=== PATIENT | female | born 1930 | race Caucasian/White ===

== ENCOUNTER 2016-12-23 15:43 | Inpatient (IN) | payer OTHER, MEDICARE ==
[~2016-12-23] VITALS: Ht 160 cm; Wt 62.3 kg
[2016-12-23] MEDS ORDERED: LORAZEPAM 0.5 MG TAB SL STA ×2 (16:36→21:07)
[2016-12-23 17:07] LABS: BASO % 0.9 %; BASO ABS # 0.07 K/uL (0-0.2); COMPLETE YES; EOS % 0.5 %; HEMATOCRIT 39.6 % (37-47); IG% 0.1 %; LYMPH % 14.4 %; LYMPH ABS # 1.18 K/uL (1.2-3.4); MEAN CELL VOLUME 87.8 fL (80-100); MEAN CORPUSCULAR HEMOGLOBIN 28.6 pg (25-34); MEAN CORPUSCULAR HGB CONC 32.6 g/dl (32-36); MEAN PLATELET VOLUME 10.9 fL (7.4-10.4); MONO % 10.3 %; NEUT % 73.8 %; PLATELET COUNT 236 K/uL (130-400); RED BLOOD COUNT 4.51 M/uL (4.2-5.4); WHITE BLOOD COUNT 8.19 K/uL (4.8-10.8)
[2016-12-23 17:22] LABS: BUN/CREATININE RATIO 29.1 (10-20); CALCIUM 9.3 mg/dl (8.5-10.1); CREATININE 0.77 mg/dl (0.60-1.20)
[2016-12-23] MEDS ORDERED: ACET-1311 PO (17:26)
[2016-12-23] MEDS ORDERED: TRAZ50TA35 PO (17:26)
[2016-12-23] MEDS ORDERED: ACET-749 PO (17:26)
[2016-12-23] MEDS ORDERED: SULF800T23 PO (17:26)
[2016-12-23] MEDS ORDERED: MIRT15TA2 PO (17:26)
[2016-12-23 17:37] LABS: URINE APPEARANCE CLOUDY (CLEAR); URINE BILIRUBIN NEG (NEG); URINE COLOR YELLOW; URINE NITRITE NEG (NEG); URINE PH 5.5 (4.5-7.5); URINE SPECIFIC GRAVITY 1.022 (1.000-1.030); UROBILINOGEN NEG (NEG)
[2016-12-23 17:38] LABS: MANUAL MICROSCOPIC REQUIRED? NO; REVIEW REQ? NO
[2016-12-23 18:07] LABS: ALKALINE PHOSPHATASE 86 U/L (45-117); ALT/SGPT 29 U/L (12-78); AST/SGOT 39 U/L (15-37); THYROID STIMULATING HORMONE 0.449 uIu/ml (0.300-4.500)
[2016-12-23 18:48] LABS: ACETAMINOPHEN < 2 ug/ml (10-30)
--- NOTE | 2016-12-23 19:11 | EMERGENCY ROOM VISIT NOTE ---
History Report prepared by Dre: Seda Hennessy Under the Supervision of: Dr. Ori Collins M.D. First contact with patient: 16:21 Chief Complaint: URINARY SYMPTOMS Stated Complaint: COMFUSION, UTI Nursing Triage Summary: was recently diagnosed with UTI and placed on antibiotic History of Present Illness The patient is a 86 year old female who presents to the Emergency Room with complaints of constant confusion beginning COMPUTER TESTER. Per nursing staff, the patient has Alzheimer's and was being combative COMPUTER TESTER. They report that she was being aggressive with the staff and talked to a nurse practitioner that recommended a psychiatric evaluation. The patient denies any headache, chest pain, and abdominal pain. She states that she wants to go to Center and notes that she feels like throwing things at people. HPI limited secondary to dementia. Source of History: patient, nursing staff History Limited By: dementia Onset: COMPUTER TESTER Position: other (global) Quality: other (combative) Timing: constant Associated Symptoms: No abdominal pain, No chest pain, No headache Review of Systems See HPI for pertinent positives & negatives. ROS limited secondary to Alzheimer' s. Past Medical & Surgical Medical Problems: (1) Alzheimer disease Family History No pertinent family history stated. Social History Smoking Status: Unknown if Ever Smoked Housing Status: long term Occupation Status: retired Current/Historical Medications Scheduled Acetaminophen (Tylenol), 650 MG PO Q4 Mirtazapine Soltab (Remeron Soltab), 15 MG PO HS Sulfamethoxazole-Trimethoprim (Bactrim Ds 800MG/160MG), 1 TAB PO BID Scheduled PRN Acetaminophen/Codeine (Tylenol W/Codeine #3), 1 TAB PO Q4 PRN for Pain Miscellaneous Medications Trazodone Hcl (Trazodone), 50 MG PO Allergies Coded Allergies: Erythromycin (Unverified Allergy, Severe, unknown, 12/23/16) Penicillins (Unverified Allergy, Severe, unknown, 12/23/16) Pravastatin (Unverified Allergy, Severe, unknown, 12/23/16) Physical Exam Vital Signs Date Time Temp Pulse Resp B/P Pulse Ox O2 Delivery O2 Flow Rate FiO2 12/23/16 17:01 114 22 128/86 96 Room Air 12/23/16 15:50 36.9 120 13 141/81 94 Room Air Physical Exam Constitutional: Vital signs reviewed. Eyes: Pupils are equal round reactive to light. Conjunctiva are noninjected. ENT: Pharynx is clear without erythema or exudate. Mucous membranes are moist. Neck supple without meningeal signs. Respiratory: Clear to auscultation bilaterally. Breath sounds are equal bilaterally. Cardiovascular: Regular rate and rhythm. No rubs or gallops. GI: Soft, nondistended and nontender. Bowel sounds are present. Musculoskeletal: No peripheral edema. No CVA tenderness. Integumentary: No cyanosis. Neurological: The patient is awake and alert. No focal deficits. Psychiatric: Slightly agitated, tangential. Medical Decision & Procedures Laboratory Results 12/23/16 17:00 Red Blood Count 4.51, Mean Corpuscular Volume 87.8, Mean Corpuscular Hemoglobin 28.6, Mean Corpuscular Hemoglobin Concent 32.6, Mean Platelet Volume 10.9, Neutrophils (%) (Auto) 73.8, Lymphocytes (%) (Auto) 14.4, Monocytes (%) (Auto) 10.3, Eosinophils (%) (Auto) 0.5, Basophils (%) (Auto) 0.9, Neutrophils # (Auto ) 6.05, Lymphocytes # (Auto) 1.18, Monocytes # (Auto) 0.84, Eosinophils # (Auto ) 0.04, Basophils # (Auto) 0.07 12/23/16 17:00 Test 12/23/16 17:00 12/23/16 17:25 12/23/16 18:15 White Blood Count 8.19 K/uL (4.8-10.8) Red Blood Count 4.51 M/uL (4.2-5.4) Hemoglobin 12.9 g/dL (12.0-16.0) Hematocrit 39.6 % (37-47) Mean Corpuscular Volume 87.8 fL (80-100) Mean Corpuscular Hemoglobin 28.6 pg (25-34) Mean Corpuscular Hemoglobin Concent 32.6 g/dl (32-36) Platelet Count 236 K/uL (130-400) Mean Platelet Volume 10.9 fL (7.4-10.4) Neutrophils (%) (Auto) 73.8 % Lymphocytes (%) (Auto) 14.4 % Monocytes (%) (Auto) 10.3 % Eosinophils (%) (Auto) 0.5 % Basophils (%) (Auto) 0.9 % Neutrophils # (Auto) 6.05 K/uL (1.4-6.5) Lymphocytes # (Auto) 1.18 K/uL (1.2-3.4) Monocytes # (Auto) 0.84 K/uL (0.11-0.59) Eosinophils # (Auto) 0.04 K/uL (0-0.5) Basophils # (Auto) 0.07 K/uL (0-0.2) RDW Standard Deviation 48.0 fL (36.4-46.3) RDW Coefficient of Variation 15.0 % (11.5-14.5) Immature Granulocyte % (Auto) 0.1 % Immature Granulocyte # (Auto) 0.01 K/uL (0.00-0.02) Anion Gap 10.0 mmol/L (3-11) Est Creatinine Clear Calc Drug Dose 44.2 ml/min Estimated GFR () 81.6 Estimated GFR (Non- 70.4 BUN/Creatinine Ratio 29.1 (10-20) Calcium Level 9.3 mg/dl (8.5-10.1) Total Bilirubin 0.4 mg/dl (0.2-1) Direct Bilirubin 0.1 mg/dl (0-0.2) Aspartate Amino Transf (AST/SGOT) 39 U/L (15-37) Alanine Aminotransferase (ALT/SGPT) 29 U/L (12-78) Alkaline Phosphatase 86 U/L (45-117) Total Protein 7.6 gm/dl (6.4-8.2) Albumin 3.8 gm/dl (3.4-5.0) Thyroid Stimulating Hormone (TSH) 0.449 uIu/ml (0.300-4.500) Free Thyroxine 0.97 ng/dl (0.80-1.60) Urine Color YELLOW Urine Appearance CLOUDY (CLEAR) Urine pH 5.5 (4.5-7.5) Urine Specific [place] 1.022 (1.000-1.030) Urine Protein NEG (NEG) Urine Glucose (UA) NEG (NEG) Urine Ketones 1+ (NEG) Urine Occult Blood 1+ (NEG) Urine Nitrite NEG (NEG) Urine Bilirubin NEG (NEG) Urine Urobilinogen NEG (NEG) Urine Leukocyte Esterase MODERATE (NEG) Urine WBC (Auto) >30 /hpf (0-5) Urine RBC (Auto) 5-10 /hpf (0-4) Urine Hyaline Casts (Auto) 5-10 /lpf (0-5) Urine Epithelial Cells (Auto) 10-20 /lpf (0-5) Urine Bacteria (Auto) NEG (NEG) Salicylates Level < 1.7 mg/dl (2.8-20) Acetaminophen Level < 2 ug/ml (10-30) Ethyl Alcohol mg/dL < 3.0 mg/dl (0-3) Laboratory results as reviewed by me. Medications Administered Medications (Trade) Dose Ordered Sig/Danni Route Start Time Stop Time Status Last Admin Dose Admin Lorazepam (Ativan Tab) 0.5 mg NOW STAT SL 12/23/16 16:36 12/23/16 16:38 DC 12/23/16 16:50 0.5 MG Lorazepam (Ativan Tab) 0.5 mg NOW STAT SL 12/23/16 21:07 12/23/16 21:08 DC 12/23/16 21:07 0.5 MG ED Course 1621: The patient was evaluated in room C3. A complete history and physical exam was performed. 1636: Ativan Tab 0.5mg SL. 2040: The patient's 302 has been filled out and [facility] is trying to place the patient. 2104: Per nursing staff, the patient is getting more agitated and the nurse is concerned that she will become physical with him. 2106: Ativan Tab 0.5mg SL. 0: The patient was signed out to Dr. Andrew. Medical Decision This is an 86-year-old female sent here for agitation. Differential diagnosis includes Alzheimer's dementia, metabolic derangement, delirium, UTI, sepsis. I did perform a limited focused review of portions of the patient's old chart on the electronic medical record. The patient has had no recent pertinent visits to this hospital. I did evaluate the patient as noted above. The patient is here from an [facility] personal senior living. She just established a resident see their yesterday. I did speak to the nurse practitioner there who stated that the patient is belligerent and they are concerned that she may be a danger to others. She also stated that the family noted that her behavior has been somewhat belligerent in the past as well. She is currently under treatment for UTI but her family stated that her behavior started before the UTI. The nurse practitioner requested that the patient be admitted somewhere such as [facility] for medication treatment. The patient is afebrile here. She has no signs of sepsis or serious medical illness. I did order and personally review the patient's urinalysis as described above. She does have signs of infection but is currently under treatment with an antibiotic. A urine culture was sent. She has no fever or CVA tenderness to suggest pyelonephritis. The patient is somewhat agitated here and was given Ativan 0.5 mg orally. I did order and review the patient's blood work as noted in the electronic medical record. I did medically clear the patient. The [facility] by [facility]. They did recommend inpatient treatment. A 302 was filled out which I signed. The patient is awaiting placement. She did become more agitated and was given additional Ativan 0.5 mg. The patient was signed out to Dr. Andrew. Impression Primary Impression: Aggressive behavior of adult Additional Impressions: Alzheimer's dementia UTI (urinary tract infection) Scribe Attestation The scribe's documentation has been prepared under my direct and personally reviewed by me in its entirety. I confirm that the note above accurately reflects all work, treatment, procedures, and medical decision making performed by me. Departure Information Dispostion Still a Patient Patient Instructions [facility] Problem Qualifiers
--- NOTE | 2016-12-23 22:17 | EMERGENCY ROOM VISIT NOTE ---
ED Visit Note First contact with patient: 22:17 The patient was taken in signout from Dr. Collins at the change of shift. The patient had bouts of agitation. Her blood work so far was unremarkable. I did obtain the culture results from her outpatient urinalysis. She had an Escherichia coli infection. It was sensitive to Bactrim. The patient was being evaluated by [facility] for inpatient care. Her urinalysis was concerning for persistent infection. The patient was evaluated and was resting comfortably but was tachycardic. She had more intermittent issues with agitation. The patient underwent CT imaging of the head which was negative. IV Cipro was ordered as well as an additional dose of Ativan. The patient calmed down before requiring the Ativan. I did discuss the case with internal medicine due to her worsening mental status from the outpatient side of things and this UTI that seems to be persisting despite the culture that was revealing the Escherichia coli to be sensitive to Bactrim. Given the situation the patient will best served by consultation with internal medicine. The patient was evaluated by Dr. Bishop for further management.
[2016-12-23] MEDS ORDERED: MIRTAZAPINE TAB 15 MG TAB PO ONE (23:00)
[2016-12-23] MEDS ORDERED: TRAZODONE HCL 50 MG TAB PO ONE (23:00)
[2016-12-23] MEDS ORDERED: SODIUM CHLORIDE 0.9% 1000ML 1,000 ML IV STA (23:28)
[2016-12-23] MEDS ORDERED: SODIUM CHLORIDE 0.9% 500ML 500 ML IV STA (23:28)
[2016-12-23] MEDS ORDERED: LORAZEPAM 2 MG/ML 1 ML VIAL IV STA (23:42)
[2016-12-24] MEDS ORDERED: CIPROFLOXACIN 400MG / 200ML D5W IV STA
[2016-12-24 02:04] VITALS: O2SAT 91
[2016-12-24 02:54] VITALS: BP 131/87; PULSE 80; TEMP 36.8; Ht 160 cm; Wt 62.3 kg
[2016-12-24] MEDS ORDERED: SODIUM CHLORIDE 0.9% 1000ML 1,000 ML IV SCH (03:15)
--- NOTE | 2016-12-24 03:48 | History and Physical ---
History & Physical Date & Time of Service: Dec 24, 2016 at 01:30 . Chief Complaint: altered mental status . Primary Care Physician: Odilia Pardo, C.R.N.P. . History of Present Illness Source: patient, family, clinic records, hospital records 86 YO female followed by SHIPPING AND RECEIVING WEIGHER Odilia Pardo at [facility]. The following history is gathered from [id number] by phone and clinic records. She is , from [place]. Son and [id number] live in [place]. She apparently first developed difficulties with memory about 4-5 years ago. Donepezil tried in 2013, but apparently did not offer much benefit. Still driving last summer. Worsening dementia lead to admission to [facility] in [place] around July. Noted to have hallucinations, delusional behavior, and wandering. Underwent repair of uterine prolapse in October. Started on trazodone in October which she continues to take. Seen at [facility] in [place] 11/28/16 for strep pharyngitis which was treated with cefdinir. Seen by RAMESH Agustin, [facility] in [facility]rology [facility] on 12/15/16. It was felt that she had advanced Alzheimer's dementia and that meds such as cholinesterase inhibitors and memantine would probably have more adverse effects than benefit. Deemed unable to stay in personal care facility and transfer to a dementia facility was recommended. Diagnosed with UTI 12/16/16. Urine C&S grew E coli, treated with TMP/sulfa. Admitted to [facility] in [place] on 12/22/16. Family reports that she seemed to be at her baseline, but was upset when they left. Over the weekend she was very agitated and at times aggressive with staff. Referred to ED around 16:00 yesterday (12/23) for psychiatric evaluation. Medical evaluation negative except for possible persistent UTI and dehydration. She was combative in ED and received 3 doses of lorazepam. Evaluated by [facility]. 302 completed. Patient referred to Hospital Medicine for admission. At the time of my assessment, patient was very somnolent and preferred to be left alone. She was unable to provide any additional history. . Past Medical/Surgical History Chronic Medical Problems: (1) Alzheimer's dementia Status: Chronic (2) Dyslipidemia Status: Chronic (3) Hypertension Status: Chronic (4) Osteoporosis Status: Chronic (5) Uterine prolapse Permanent Comment: s/p repair Status: Chronic . Family History FATHER Stroke BROTHER Esophageal cancer GRANDMOTHER Breast cancer Social History Smoking Status: Never Smoker Alcohol Use: none Marital Status: Housing status: assisted living Occupational Status: retired Immunizations History of Influenza Vaccine: Yes History of Pneumococcal: Yes Allergies Coded Allergies: Erythromycin (Unverified Allergy, Severe, unknown, 12/23/16) Pravastatin (Unverified Allergy, Severe, unknown, 12/23/16) Penicillins (Unverified Allergy, Intermediate, HIVES, 12/24/16) cephalosporins OK received cefdinir Nov 2016 without problems Home Medications Scheduled Acetaminophen (Tylenol), 650 MG PO Q4 Mirtazapine Soltab (Remeron Soltab), 15 MG PO HS Sulfamethoxazole-Trimethoprim (Bactrim Ds 800MG/160MG), 1 TAB PO BID Scheduled PRN Acetaminophen/Codeine (Tylenol W/Codeine #3), 1 TAB PO Q4 PRN for Pain Miscellaneous Medications Trazodone Hcl (Trazodone), 50 MG PO Review of Systems Unable to obtain due to patient's condition. . Physical Exam Vital Signs Date Time Temp Pulse Resp B/P Pulse Ox O2 Delivery O2 Flow Rate FiO2 12/24/16 02:54 36.8 80 18 131/87 Room Air 12/24/16 02:04 80 18 91 12/24/16 00:29 110 12/24/16 00:01 111 18 120/86 94 Room Air 12/23/16 17:01 114 22 128/86 96 Room Air 12/23/16 15:50 36.9 120 13 141/81 94 Room Air General Appearance: WD/WN, no apparent distress Head: normocephalic, atraumatic Eyes: + pertinent finding (patient would not cooperate with exam) ENT: normal ENT inspection, hearing grossly normal, + pertinent finding ( patient would not cooperate with complete exam) Neck: supple, no adenopathy, thyroid normal, no JVD, trachea midline Respiratory/Chest: lungs clear, no respiratory distress, no accessory muscle use Cardiovascular: regular rate, rhythm, no edema, no gallop, no JVD, no murmur Abdomen/GI: normal bowel sounds, non tender, soft, no organomegaly, no pulsatile mass Back: no CVA tenderness Extremities/Musculoskelatal: normal inspection, no calf tenderness, no pedal edema Neurologic/Psych: + pertinent finding (confused, somnolent; unable to assess CN ; moves all 4 extr; plantar reflexes downgoing) Skin: normal color, warm/dry Lymphatic: no adenopathy Diagnostics Laboratory Results Results Past 24 Hours Test 12/23/16 17:00 12/23/16 17:25 12/23/16 18:15 12/23/16 23:30 Range/Units White Blood Count 8.19 4.8-10.8 K/uL Red Blood Count 4.51 4.2-5.4 M/uL Hemoglobin 12.9 12.0-16.0 g/dL Hematocrit 39.6 37-47 % Mean Corpuscular Volume 87.8 80-100 fL Mean Corpuscular Hemoglobin 28.6 25-34 pg Mean Corpuscular Hemoglobin Concent 32.6 32-36 g/dl Platelet Count 236 130-400 K/uL Mean Platelet Volume 10.9 7.4-10.4 fL Neutrophils (%) (Auto) 73.8 % Lymphocytes (%) (Auto) 14.4 % Monocytes (%) (Auto) 10.3 % Eosinophils (%) (Auto) 0.5 % Basophils (%) (Auto) 0.9 % Neutrophils # (Auto) 6.05 1.4-6.5 K/uL Lymphocytes # (Auto) 1.18 1.2-3.4 K/uL Monocytes # (Auto) 0.84 0.11-0.59 K/uL Eosinophils # (Auto) 0.04 0-0.5 K/uL Basophils # (Auto) 0.07 0-0.2 K/uL RDW Standard Deviation 48.0 36.4-46.3 fL RDW Coefficient of Variation 15.0 11.5-14.5 % Immature Granulocyte % (Auto) 0.1 % Immature Granulocyte # (Auto) 0.01 0.00-0.02 K/uL Sodium Level 142 136-145 mmol/L Potassium Level 4.0 3.5-5.1 mmol/L Chloride Level 109 98-107 mmol/L Carbon Dioxide Level 23 21-32 mmol/L Anion Gap 10.0 3-11 mmol/L Blood Urea Nitrogen 22 7-18 mg/dl Creatinine 0.77 0.60-1.20 mg/dl Est Creatinine Clear Calc Drug Dose 44.2 ml/min Estimated GFR () 81.6 Estimated GFR (Non- 70.4 BUN/Creatinine Ratio 29.1 10-20 Random Glucose 97 70-99 mg/dl Calcium Level 9.3 8.5-10.1 mg/dl Total Bilirubin 0.4 0.2-1 mg/dl Direct Bilirubin 0.1 0-0.2 mg/dl Aspartate Amino Transf (AST/SGOT) 39 15-37 U/L Alanine Aminotransferase (ALT/SGPT) 29 12-78 U/L Alkaline Phosphatase 86 45-117 U/L Troponin I < 0.015 0-0.045 ng/ml Total Protein 7.6 6.4-8.2 gm/dl Albumin 3.8 3.4-5.0 gm/dl Thyroid Stimulating Hormone (TSH) 0.449 0.300-4.500 uIu/ml Free Thyroxine 0.97 0.80-1.60 ng/dl Urine Color YELLOW Urine Appearance CLOUDY CLEAR Urine pH 5.5 4.5-7.5 Urine Specific [place] 1.022 1.000-1.030 Urine Protein NEG NEG Urine Glucose (UA) NEG NEG Urine Ketones 1+ NEG Urine Occult Blood 1+ NEG Urine Nitrite NEG NEG Urine Bilirubin NEG NEG Urine Urobilinogen NEG NEG Urine Leukocyte Esterase MODERATE NEG Urine WBC (Auto) >30 0-5 /hpf Urine RBC (Auto) 5-10 0-4 /hpf Urine Hyaline Casts (Auto) 5-10 0-5 /lpf Urine Epithelial Cells (Auto) 10-20 0-5 /lpf Urine Bacteria (Auto) NEG NEG Salicylates Level < 1.7 2.8-20 mg/dl Acetaminophen Level < 2 10-30 ug/ml Ethyl Alcohol mg/dL < 3.0 0-3 mg/dl Test 12/24/16 00:02 Range/Units Bedside Troponin I 0.010 0-0.045 ng/ml Microbiology Results 12/23/16 Urine Culture, Received Pending Diagnostic Radiology CT HEAD (prelim report by [facility]): chronic white matter small vessel disease no acute event CHEST X-RAY (preliminary report by undersigned): no infiltrates ?? mild vascular prominence . EKG EKG performed at 00:[address] at 101 / minute, [id number]'s, QTc 427 msec. . Impression Assessment and Plan DELIRIUM / DEMENTIA Progressive dementia for about 5 years, probably Alzheimer's disease (although may also have a component of vascular dementia). Unable to stay in her home, so admitted to personal care in Jul. Unable to stay at personal care facility due to wandering and combative behavior. Transferred to dementia care unit 2 days ago. Exhibiting combative behavior there and referred to [facility] for further evaluation and management. Superimposed delirium could be do to combination of factors- recent change of living conditions, dehydration, possible UTI, meds. Unable to return to [facility]. Spoke with [id number]. Possible admission to geropsych unit had been mentioned as a possibility, but family is hoping to avoid transfer to yet another facility. Will treat medical concerns as outlined below. Patient was recently seen in consultation by [facility] Neurology. Routine labs (TSH, B12, etc) OK. Cholinesterase inhibitors or memantine not recommended because of anticipated side effects without likely benefit. Consult Neuro to follow her during her hospital stay. Behavioral issues (delusional thoughts, apparent hallucinations, combative behavior) have been a major concern, not responding to nonpharmacologic interventions. Benzodiazepines, narcotics, anti-cholinergic meds should be avoided. Atypical anti-psychotics discussed with [id number], including side effects , black box warning, and absence of FDA approval for patients with dementia. Given the circumstances, would seem reasonable to try low dose quetiapine to try to improve patient's quality of life (and accept possibility of adverse side effects). QTc OK on EKG. Will start quetiapine 25 mg HS + PRN for severe delirium. (PRN dose will need to be stopped before transfer to another facility). Won't hurt to start aspirin for possible vascular dementia. Watch for Parkinson-like symptoms on antipsychotics (which could be indicative of Lewy body dementia). Will need outpatient follow-up with Neurology and / or Geropsychiatry. DEPRESSION Has been on mirtazapine at least since Jul and trazodone since Oct; both can cause confusion DC mirtazapine + trazodone. Try low-dose sertraline (25 mg daily). DEHYDRATION BUN slightly elevated. IV fluid x 1 liter, then encourage PO fluids. POSSIBLE UTI Recently diagnosed E coli UTI, resistant to ampicillin, sensitive to ceftriaxone , cefepime, quinolones, gent, TMP/sulfa. Treated with TMP / sulfa. Currently afebrile with normal WBC count. UA shows moderate leukocyte esterase, WBC's, RBC's, hyaline casts, epithelial cells. May or may not have persistent UTI. Best to avoid quinolones due to anticholinergic properties. Rx with IV ceftriaxone pending repeat culture results. VTE PROPHYLAXIS Moderate risk for VTE. SQ enoxaparin. Ambulate. VACCINATION STATUS Received pneumococcal vaccine last in 2014. Has received influenza vaccine on regular basis; assume that it was given at [facility] in [place] this season, but will need to verify. RESUSCITATION STATUS Not discussed. Will need to be clarified with family. DISPOSITION Admit to Med-Surg Unit. To be determined. Family hopes that she will be able to return to [facility]. CONTACT INFO: iN ([id number]) [phone] . Advanced Directives Existing Advance Directive: Yes Existing Living Will: Yes Existing Power of Security Systems Sales Representative: Yes VTE Prophylaxis VTE Risk Assessment Done? Y/N: Yes Risk Level: Moderate Given or contraindicated: Enoxaparin (Lovenox)SQ
[2016-12-24] MEDS ORDERED: ACETAMINOPHEN 500 MG TAB PO PRN (04:30)
--- NOTE | 2016-12-24 06:13 | DIAGNOSTIC IMAGING REPORT ---
HEAD CT NONCONTRAST CT DOSE: 537.48 mGy.cm HISTORY: Altered mental status. TECHNIQUE: Multiaxial CT images of the head were performed without the use of intravenous contrast. Automated exposure control was utilized for this study. Comparison: None. Findings: The paranasal sinuses and mastoid air cells are clear. The calvarium and skull base are intact. There is no mass, hematoma, midline shift, acute infarct. White matter hypodensity is nonspecific but suggestive of microvascular ischemic change. The ventricles and sulci demonstrate mild age-related involutional changes. Impression: No acute intracranial abnormality. Atrophy and microvascular ischemic changes. Electronically signed by: Dany Kent M.D. 12/24/2016 6:11 AM Dictated Date/Time: 12/24/2016 6:09 AM
[2016-12-24 07:04] VITALS: BP 123/81; PULSE 103; TEMP 36.6; O2SAT 98
[2016-12-24 07:39] LABS: INR 1.1 (0.9-1.1); PROTHROMBIN TIME (PATIENT) 11.3 SECONDS (9.0-12.0)
[2016-12-24 07:46] LABS: BUN/CREATININE RATIO 28.1 (10-20); CALCIUM 8.7 mg/dl (8.5-10.1); CREATININE 0.68 mg/dl (0.60-1.20)
[2016-12-24] MEDS ORDERED: PNEUMOCOCCAL POLYSACCHARIDES 25 MCG/0.5 ML VIAL/SYR IM. ONE (08:00)
[2016-12-24] MEDS ORDERED: INFLUENZA VIRUS QUAD VACCINE 0.5 ML SYR IM. ONE (08:00)
[2016-12-24] MEDS ORDERED: INFLUENZA ADMINISTRATION CHARGE ONE (08:00)
[2016-12-24] MEDS ORDERED: PNEUMOCOCCAL ADMINISTRATION CHARGE ONE (08:00)
--- NOTE | 2016-12-24 08:06 | DIAGNOSTIC IMAGING REPORT ---
CHEST ONE VIEW PORTABLE HISTORY: delirium COMPARISON: None. FINDINGS: Mild diffuse interstitial thickening which is likely chronic. No focal lung consolidations. The heart is top normal in size. No pleural effusions. No pneumothorax. No evidence for pulmonary edema. IMPRESSION: No acute process. Electronically signed by: Dany Kent M.D. 12/24/2016 8:04 AM Dictated Date/Time: 12/24/2016 8:03 AM
[2016-12-24] MEDS: ASPIRIN 81 MG ECTAB PO SCH (08:34)
[2016-12-24] MEDS: SERTRALINE HCL 50 MG TAB PO SCH (08:34)
[2016-12-24] MEDS: ENOXAPARIN 30 MG/0.3 ML SYR SQ SCH (08:35)
[2016-12-24] MEDS ORDERED: HEPARIN SOD 5000 UNIT/0.5 ML CARP SQ SCH (09:00)
[2016-12-24] MEDS ORDERED: CEFTRIAXONE SOD INJ 1 GM in DEXTROSE 5% ADD-VANTAGE 50ML 50 ML IV SCH (09:00)
--- NOTE | 2016-12-24 13:46 | PROGRESS NOTE ---
DATE: 12/24/2016 REQUESTING PHYSICIAN: . HISTORY OF PRESENT ILLNESS: Bren is 86 years old, is followed by Dr. Odilia Pardo at [facility] and was admitted to the hospital for increasing dementia and agitation in the setting of a probable underlying urinary tract infection. She had been seen by neurology, actually on 12/15/2016 by Lelia CHANDLER, was felt to have advanced Alzheimer's disease and to be beyond the point that cholinesterase inhibitors and Namenda would be beneficial and would probably be more harmful than anything else. She was felt furthermor to be unable to stay at her personal care facility and transfer to a dementia facility was recommended. She was diagnosed with a urinary tract infection on 12/16/2016. Urine culture grew out E. coli and she was placed on trimethoprim sulfa. She was placed at [facility] on 12/22/2016 and seemed to be at her baseline, but then over the weekend she became agitated, aggressive with the staff and was referred to the ER and subsequently admitted to the hospital. She is on one on one care ever since. It appears that her dementia has been coming on for quite a number of years, perhaps 5-10. PAST MEDICAL HISTORY: In addition to the dementia, likely as an Alzheimer's type, or mixed Alzheimer's vascular include dyslipidemia, hypertension, osteoporosis, uterine prolapse. FAMILY HISTORY: Positive for esophageal cancer, breast cancer and stroke. SOCIAL HISTORY: Reveals her to be a never smoker. She is . She is currently in the assisted living and is a former resident of [place], [place]. ALLERGIES: SHE HAS ALLERGIES TO ERYTHROMYCIN, PRAVASTATIN, PENICILLINS. MEDICATIONS: Include acetaminophen, Remeron, trimethoprim sulfa. As needed medicines include acetaminophen, and codeine. She also takes trazodone 50 mg daily. PHYSICAL EXAMINATION: VITAL SIGNS: On admission revealed blood pressure 131/87, pulse was 80, respirations were 18. She was afebrile. GENERAL: She was a thin woman who actually appeared a little younger than her stated age, but was poorly cooperative with examination. HEENT: Gross examination of head, eyes, ears, nose and throat was unremarkable. NECK: Supple. LUNGS: Clear. HEART: Had a regular rhythm. ABDOMEN: Soft, nontender. EXTREMITIES: Free of edema. Today in the light of the mid morning she is pleasant. She with a one on one caregiver. She is leafing through various magazines, can identify certain pictures, but is totally disoriented to place, time, year, etc. She gazes about to room. She does not appear to be agitated and on gross cranial nerve testing, I see no deficits. She seems to respond to visual threat in all dhaliwal. The eye movements are full. Speech is clear. She has normal facial motility and strength. Normal gross facial sensation. I really cannot get her to cooperate with reflex testing to any degree. They seem to be all present and equal. Toes are downgoing. Strength testing again is difficult to assess, but she certainly has the power to do most of her task, and can get up and walk. Sensory examination cannot be performed in any usable manner. It is clear this woman has advanced dementia. She has had some behavioral issues possibly as part of delirium related to her urinary tract infection, but she has also had an environmental change and I think some of this may be not inappropriate. I agree with Dr. Bishop idea to put her on a little Seroquel. Frankly, I would get geriatric psychiatry involved fairly quickly as if her behavior makes her a noncandidate for the [facility] facility she may have to be moved to a more closely supervised environment. An inpatient psychiatry evaluation now may make outpatient evaluation more readily established after discharge. I agree that at this point Namenda and Aricept are not going to offer any benefits. I reviewed imaging studies and there is a degree of atrophy not inappropriate for age and also fair amount of leukoencephalopathy. So the onset of this may be a mixed dementia in addition to advanced Alzheimer's certainly is a possibility, but is an academic question at this point. Will check with her periodically over the next few days. LYNNE
[2016-12-24] MEDS: QUETIAPINE FUMARATE 25 MG TAB PO PRN (14:08)
[2016-12-24 14:53] VITALS: BP 115/78; PULSE 125; TEMP 36.3; O2SAT 97
--- NOTE | 2016-12-24 17:26 | Progress Note ---
Medicine Progress Note Date & Time of Visit: Dec 24, 2016 at 17:19. Subjective Patient seen and examined. Patient trying to roam hallways earlier. No agitation; no aggression. Objective Last 8 Hrs Date Time Temp Pulse Resp B/P Pulse Ox O2 Delivery O2 Flow Rate FiO2 12/24/16 14:53 36.3 125 18 115/78 97 Room Air Physical Exam: General-awake; alert; NAD Eyes-EOMI; no scleral icterus Neck-no stridor; trachea midline Lungs-CTA bilaterally; no wheezes/crackles Heart-tachycardic but regular Abdomen-soft; NTND; nBS Extremities-no c/c/e; no deformity Neuro-unable to fully asses given underlying severe dementia Laboratory Results: Last 24 Hours Test 12/23/16 17:25 12/23/16 18:15 12/23/16 23:30 12/24/16 00:02 Urine Color YELLOW Urine Appearance CLOUDY Urine pH 5.5 Urine Specific [place] 1.022 Urine Protein NEG Urine Glucose (UA) NEG Urine Ketones 1+ Urine Occult Blood 1+ Urine Nitrite NEG Urine Bilirubin NEG Urine Urobilinogen NEG Urine Leukocyte Esterase MODERATE Urine WBC (Auto) >30 /hpf Urine RBC (Auto) 5-10 /hpf Urine Hyaline Casts (Auto) 5-10 /lpf Urine Epithelial Cells (Auto) 10-20 /lpf Urine Bacteria (Auto) NEG Salicylates Level < 1.7 mg/dl Acetaminophen Level < 2 ug/ml Ethyl Alcohol mg/dL < 3.0 mg/dl Bedside Troponin I 0.010 ng/ml Test 12/24/16 06:51 12/24/16 06:57 Sodium Level 141 mmol/L Potassium Level 4.0 mmol/L Chloride Level 106 mmol/L Carbon Dioxide Level 23 mmol/L Anion Gap 12.0 mmol/L Blood Urea Nitrogen 19 mg/dl Creatinine 0.68 mg/dl Est Creatinine Clear Calc Drug Dose 50.0 ml/min Estimated GFR () 92.4 Estimated GFR (Non- 79.8 BUN/Creatinine Ratio 28.1 Random Glucose 84 mg/dl Calcium Level 8.7 mg/dl Prothrombin Time 11.3 SECONDS Prothromb Time International Ratio 1.1 Activated Partial Thromboplast Time 27.0 SECONDS Partial Thromboplastin Ratio 1.0 Date/Time Source Procedure Growth Status 12/24/16 05:30 Nasal MRSA DNA Surveillance Screen - Final Specimen Negative for MRSA by DNA Probe Complete 12/23/16 17:25 Urine , Clean Catch Urine Culture - Preliminary NO GROWTH - LESS THAN 1,000 COLONIES/... Resulted Assessment & Plan DELIRIUM / DEMENTIA Progressive dementia for about 5 years, probably Alzheimer's disease (although may also have a component of vascular dementia). Unable to stay in her home, so admitted to personal care in Jul. Unable to stay at personal care facility due to wandering and combative behavior. Transferred to dementia care unit 2 days ago. Exhibiting combative behavior there and referred to [facility] for further evaluation and management. Superimposed delirium could be do to combination of factors- recent change of living conditions, dehydration, possible UTI, meds. Patient was recently seen in consultation by [facility]. Routine labs (TSH, B12, etc) OK. Cholinesterase inhibitors or memantine not recommended because of anticipated side effects without likely benefit. Consulted Neuro. Behavioral issues (delusional thoughts, apparent hallucinations, combative behavior) have been a major concern, not responding to nonpharmacologic interventions. Benzodiazepines, narcotics, anti-cholinergic meds should be avoided. Started quetiapine 25 mg HS + PRN for severe delirium. (PRN dose will need to be stopped before transfer to another facility). Aspirin started for possible component of vascular dementia. Will need outpatient follow-up with Neurology and / or Geropsychiatry. DEPRESSION Has been on mirtazapine at least since Jul and trazodone since Oct; both can cause confusion Discontinued mirtazapine + trazodone. Started low-dose sertraline (25 mg daily). VTE PROPHYLAXIS Moderate risk for VTE. SQ enoxaparin. Ambulate. CONTACT INFO: Ni ([id number]) [phone] No clinical evidence of current UTI. Dirty urinalysis with many epithelial cells. Urine culture negative. Patient had received appropriate treatment for UTI as outpatient. Consultants: Neurology Current Inpatient Medications: Current Inpatient Medications Medications (Trade) Dose Ordered Sig/Danni Route Start Time Stop Time Status Last Admin Dose Admin Haloperidol Lactate 0.5 mg 0.5 mg Q30M PRN IM 12/24/16 01:45 Ceftriaxone Sodium/Dextrose (Rocephin Inj/ Dextrose Add-[place] 50ML) 50 ml @ 100 mls/hr DAILY IV 12/24/16 09:00 01/03/17 08:59 12/24/16 08:45 100 MLS/HR Quetiapine Fumarate (seroQUEL TAB) 25 mg HS PO 12/24/16 21:00 01/23/17 20:59 Quetiapine Fumarate (seroQUEL TAB) 25 mg Q6H PRN PO 12/24/16 03:15 01/23/17 03:14 12/24/16 14:08 25 MG Sertraline HCl (Zoloft Tab) 25 mg QAM PO 12/24/16 09:00 01/23/17 08:59 12/24/16 08:34 25 MG Aspirin (Ecotrin Tab) 81 mg QAM PO 12/24/16 09:00 01/23/17 08:59 12/24/16 08:34 81 MG Enoxaparin Sodium (Lovenox Inj) 30 mg QAM SQ 12/24/16 09:30 01/23/17 09:29 12/24/16 08:35 30 MG Acetaminophen (Tylenol Tab) 500 mg Q6H PRN PO 12/24/16 04:30 01/23/17 04:29
[2016-12-24] MEDS: QUETIAPINE FUMARATE 25 MG TAB PO SCH (20:30)
[2016-12-25] MEDS: HALOPERIDOL LACTATE 5 MG/ML 1 ML VIAL IM PRN ×2 (07:15→08:09)
[2016-12-25] MEDS ORDERED: HALOPERIDOL LACTATE 5 MG/ML 1 ML VIAL IM PRN ×2 (08:15→19:45)
[2016-12-25] MEDS: ENOXAPARIN 30 MG/0.3 ML SYR SQ SCH ×2 (09:00→09:20)
[2016-12-25] MEDS: ASPIRIN 81 MG ECTAB PO SCH ×3 (09:00→10:15)
[2016-12-25] MEDS: SERTRALINE HCL 50 MG TAB PO SCH ×3 (09:00→10:15)
[2016-12-25] MEDS: QUETIAPINE FUMARATE 25 MG TAB PO PRN ×2 (09:19→10:15)
--- NOTE | 2016-12-25 09:36 | Psychiatric Consultation ---
Consultation Identifying Data Ms. Stewart is an 86 yo female, recent resident to memory care unit of a skilled nursing, brought to ED on 12/24 for combative behavior at facility, admit 12/25 for UTI/dehydration. Chief Complaint patient unable to provide, combative this am, required 0.5 mg Haldol X2. History of Present Illness history on chart reviewed--no psych history until dx of memory issues/dementia 4 -5 years ago, initially tried on donepezil. Significant decline from last summer when reportedly still driving. Admitted to a personal longterm this fall and progressed to some hallucinations, delusional behavior and wandering there. Recommended to higher level of care by neurology [facility] consultant about 10 days ago. Only at [facility] since Dec 22 but agitated and aggressive with staff so referred to ED for ALONSO sosa. She did receive prn Ativan in the ED and 302 process was started prior to admission to medicine. Her Remeron was discontinued by medicine team in favor of Zoloft for agitation and given level of combativeness/restlessness she was started on Seroquel 25 mg hs with additional prn. The patient is currently sleeping soundly after period of confusion escalating to attempted wandering and 4 staff involved in maintaining safety. Received 0.5 mg Haldol with a repeat and 5 mg prn is currently ordered. Past Psychiatric History no formal, liaison will confirm with family member on trazodone since Oct. Past Medical/Surgical History Problem List: (1) Alzheimer's dementia (2) Altered mental status (3) UTI (urinary tract infection) (4) Dyslipidemia (5) Hypertension (6) Osteoporosis (7) Uterine prolapse (8) Dehydration Allergies Allergies: Coded Allergies: Erythromycin (Unverified Allergy, Severe, unknown, 12/23/16) Pravastatin (Unverified Allergy, Severe, unknown, 12/23/16) Penicillins (Unverified Allergy, Intermediate, HIVES, 12/24/16) cephalosporins OK received cefdinir Nov 2016 without problems Home Medications Scheduled Acetaminophen (Tylenol), 650 MG PO Q4 Mirtazapine Soltab (Remeron Soltab), 15 MG PO HS Sulfamethoxazole-Trimethoprim (Bactrim Ds 800MG/160MG), 1 TAB PO BID Scheduled PRN Acetaminophen/Codeine (Tylenol W/Codeine #3), 1 TAB PO Q4 PRN for Pain Miscellaneous Medications Trazodone Hcl (Trazodone), 50 MG PO Family History Breast cancer GRANDMOTHER Esophageal cancer BROTHER Stroke FATHER patient is unable to provide family psych history. Alcohol Use Alcohol Use In Past 12 Months: No Substance History no Personal History Development: from [employer] Work History: retired Children: 2--son in [place], daughter in [place] Review of Systems patient unable to complete due to sedation/delirium Examination Vital Signs Vital Signs Past 12 Hours Date Time Temp Pulse Resp B/P Pulse Ox O2 Delivery O2 Flow Rate FiO2 12/24/16 23:31 Room Air Mental Examination During interview pt is: uncooperative Appearance: disheveled Eye contact is: poor full exam could not be completed as s/p prn Haldol Impression / Recommendations Impression 86 yo female with history of dementia with behavioral disturbance and reportedly psychotic symptoms admit for acting out behaviors at a new facility in the context of superimposed delirium from UTI/dehydration. Just started SSRI and low dose Seroquel to address behavioral disturbance related to dementia. Recommendations (1) Altered mental status typical delirium recs as far as prns, given sedation following 1 mg total of Haldol, current dose of haldol 5 with repeat may be a bit high for this antipsychotic naive patient, 2 or 2.5 mg may be sufficient. If higher dose or repetitive doses are needed would recommend coadministration with Cogentin 0.5 or 1 mg to limit EPS as can impact gait and swallow, note that anticholinergics can also contribute to delirium. QTc is normal. (2) Alzheimer's dementia would continue current doses of Zoloft and Seroquel, if sedated on 25 mg as prn would decrease prn to 12.5 mg. use of Seroquel in this patient outweighs risks in elderly given level of combativeness with routine care as patient was a risk to self and others will need to determine appropriateness of a jeane psych admit when full MSE can be performed as unable to assess ballesteros/delusions liaison to confirm status of 302.
[2016-12-25 13:56] VITALS: BP 133/89; PULSE 114; TEMP 36.7; O2SAT 96
--- NOTE | 2016-12-25 14:51 | Neurology Progress Notes ---
Neurology Progress Note Date of Service Dec 25, 2016. Pino Correia is an 86 year old with advance dementia that was seen in our office by Fletcher Mazariegos NP and was not thought to benefit from adding dementia medications at this stage in the disease. She was transitioned to [facility] on 12/22/2016 after it was determined she would not safe at her personal shelter. She was treated for a UTI and then had an episode of aggression and was brought to the ED further evaluation. She is sitting on the side of the bed currently and appears to be calm. When asked if she ate her lunch she states she has but the aid states she didn't eat any lunch. denies CP , SOB, abdominal pain, N, V. Objective Date Time Temp Pulse Resp B/P Pulse Ox O2 Delivery O2 Flow Rate FiO2 12/25/16 13:56 36.7 114 20 133/89 96 12/25/16 10:31 Room Air 12/24/16 23:31 Room Air 12/24/16 20:45 Room Air 12/24/16 14:53 36.3 125 18 115/78 97 Room Air no new labs Imaging: no new images Exam: Physical Exam: Constitutional: appearance thin pale Ears, Nose, Mouth and Throat: mucous membranes moist, no injection and skin normal, eyes normal Cardiovascular: normal S-1 and S-2 and regular rate and rhythm Respiratory: clear to auscultation (CTA) and no rales, rhonchi or wheeze Musculoskeletal: no peripheral edema and good distal pulses Skin: no stigmata of neurocutaneous disease noted and normal and intact Eyes: extraocular muscles intact (EOMI) and pupils equal, round and reactive to light (PERRL) NEUROLOGIC EXAMINATION: Mental status: Alert and interactive she thinks it is 1945, wont say her age, states she [place] the [place] and does not know where she is. 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 Current Inpatient Medications Medications (Trade) Dose Ordered Sig/Danni Route Start Time Stop Time Status Last Admin Dose Admin Quetiapine Fumarate (seroQUEL TAB) 25 mg HS PO 12/24/16 21:00 01/23/17 20:59 12/24/16 20:30 25 MG Quetiapine Fumarate (seroQUEL TAB) 25 mg Q6H PRN PO 12/24/16 03:15 01/23/17 03:14 12/25/16 10:15 25 MG Sertraline HCl (Zoloft Tab) 25 mg QAM PO 12/24/16 09:00 01/23/17 08:59 12/25/16 10:15 25 MG Aspirin (Ecotrin Tab) 81 mg QAM PO 12/24/16 09:00 01/23/17 08:59 12/25/16 10:15 81 MG Enoxaparin Sodium (Lovenox Inj) 30 mg QAM SQ 12/24/16 09:30 01/23/17 09:29 12/24/16 08:35 30 MG Acetaminophen (Tylenol Tab) 500 mg Q6H PRN PO 12/24/16 04:30 01/23/17 04:29 Haloperidol Lactate (Haldol Inj) 5 mg Q30M PRN IM 12/25/16 08:15 01/24/17 08:14 12/25/16 10:57 5 MG Impression 86 year old female with severe dementia Plan 1. would use seraquel as needed as prescribed by psychiatry watch for sedation 2. Aricept and Namenda would have no roll in treatment at this stage of dementia 3. zoloft started for depression 4. haldol would watch dosing due to age and renal issues 5. nutrition appears to be an issue 6. family input would be helpful for direction of management I have seen and discussed above patient with Dr Kim Clayton, neurology Pt discussed and seen with MYA López. Pt is awake, distractible, mildly defensive. Pt recent change in MS likely related to new surroundings and UTI superimposed on what is at least a moderate dementia.I agree with the use of seroquel for management of behavioral issues. Hopefully it will allow her to be able to stay at her current level of care. KOTA Clayton MD
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
[2016-12-25] MEDS: QUETIAPINE FUMARATE 25 MG TAB PO SCH (21:00)
[2016-12-25 23:43] VITALS: BP 133/85; PULSE 108; TEMP 36.9; O2SAT 95
[2016-12-26 07:06] VITALS: BP 131/84; PULSE 113; TEMP 36.7; O2SAT 94
[2016-12-26 07:34] VITALS: BP 120/61; PULSE 102; TEMP 36.7; O2SAT 90
[2016-12-26] MEDS: SERTRALINE HCL 50 MG TAB PO SCH (07:44)
[2016-12-26] MEDS: ASPIRIN 81 MG ECTAB PO SCH (07:45)
[2016-12-26] MEDS: ENOXAPARIN 30 MG/0.3 ML SYR SQ SCH (07:45)
--- NOTE | 2016-12-26 13:36 | Progress Note ---
Internal Med Progress Note Date of Service: Dec 26, 2016. Provider Documentation: SUBJECTIVE: Patient is seen and examined at bedside. Sitter at bedside. No agitation per staff. Patient reports feeling well. Denies any chest pain, SOB, urinary symptoms. OBJECTIVE: Vital Signs-as noted below Physical Exam: General Appearance:Moderately built and nourished, no apparent distress Head: normocephalic, Atraumatic Eyes: normal inspection, EOMI, PERRL Neck: supple, no JVD, Trachea midline Respiratory/Chest: Normal breath sounds, CTA Cardiovascular: S1, S2, Tachycardia, No murmur Abdomen/GI:Soft, Non tender, Bowel sounds present Extremities/Musculoskelatal:normal inspection, no edema Neurologic/Psych:Grossly no focal neurological deficits, +dementia Skin: normal color, warm Lab data as noted below. ASSESSMENT & PLAN: DELIRIUM / DEMENTIA Patient has progressive dementia since 5 years, probably Alzheimer's disease Patient initially was admitted to personal care in Jul and later transferred to dementia care unit. Patient was admitted secondary to combative behavior while at dementia unit Superimposed delirium could be a contributor- secondary to meds TSH, B12: wnl Cholinesterase inhibitors or memantine not recommended because of anticipated side effects without likely benefit. Neurology and Psychiatry on board Benzodiazepines, narcotics, anti-cholinergic meds should be avoided. Started quetiapine 25 mg HS + PRN for severe delirium. (PRN dose will need to be stopped before transfer to another facility). Haldol PRN agitation. Aspirin started for possible component of vascular dementia. Disposition: Family prefers patient to return to [facility]. Patient may require geriatric psychiatry inpatient She is currently under 302. DEPRESSION Had been on mirtazapine at least since Jul and trazodone since Oct: discontinued secondary to confusion Continue Sertraline 25 mg daily SINUS TACHYCARDIA: Asymptomatic DVT Px SQ Heparin Ambulate. CONTACT INFO: Ni ([id number]) [phone] No clinical evidence of current UTI. Dirty urinalysis with many epithelial cells. Urine culture negative. Patient had received appropriate treatment for UTI as outpatient; no current indication for antibiotics. Consultants: Neurology Psychiatry Vital Signs: Date Time Temp Pulse Resp B/P Pulse Ox O2 Delivery O2 Flow Rate FiO2 12/26/16 08:00 Room Air 12/26/16 07:34 Room Air 12/26/16 07:06 36.7 113 20 131/84 94 Room Air 12/26/16 01:02 Room Air 12/25/16 23:43 36.9 108 20 133/85 95 Room Air 12/25/16 19:41 Room Air 12/25/16 13:56 36.7 114 20 133/89 96
--- NOTE | 2016-12-26 14:42 | Neurology Progress Notes ---
Neurology Progress Note Date of Service Dec 26, 2016. Pino Correia is an 86 year old with advance dementia that was seen in our office by Fletcher Mazariegos NP and was not thought to benefit from adding dementia medications at this stage in the disease. She was transitioned to [facility] on 12/22/2016 after it was determined she would not safe at her personal fci. She was treated for a UTI and then had an episode of aggression and was brought to the ED further evaluation. She is lying in bed but was up earlier and walked around in the halls. She is much more cooperative today and seems more content. The 1:1 in the room states she ate a few bites of her lunch but she states she didn't really like it but did drink everything on the tray. denies CP, SOB, abdominal pain, N, V. Objective Date Time Temp Pulse Resp B/P Pulse Ox O2 Delivery O2 Flow Rate FiO2 12/26/16 08:00 Room Air 12/26/16 07:34 Room Air 12/26/16 07:06 36.7 113 20 131/84 94 Room Air 12/26/16 01:02 Room Air 12/25/16 23:43 36.9 108 20 133/85 95 Room Air 12/25/16 19:41 Room Air no new labs Imaging: no new images Exam: Physical Exam: Constitutional: appearance nourish thin pale Ears, Nose, Mouth and Throat: mucous membranes moist, no injection and skin normal, eyes normal Cardiovascular: normal S-1 and S-2 and regular rate and rhythm Respiratory: clear to auscultation (CTA) and no rales, rhonchi or wheeze Musculoskeletal: no peripheral edema Skin: no stigmata of neurocutaneous disease noted and normal and intact Eyes: extraocular muscles intact (EOMI) and pupils equal, round and reactive to light (PERRL) NEUROLOGIC EXAMINATION: Mental status: Alert and interactive Oriented can not say where she is or the year but not a defensive about it Oriented to person Speech fluent with no evidence of aphasia Cranial Nerves smile and eye brow raise symmetric Coordination: finger to nose without bi pass Gait/Stance: Posture lying in bed Motor: Negative for pronator drift of out stretched arms with eyes closed. 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 Current Inpatient Medications Medications (Trade) Dose Ordered Sig/Danni Route Start Time Stop Time Status Last Admin Dose Admin Quetiapine Fumarate (seroQUEL TAB) 25 mg HS PO 12/24/16 21:00 01/23/17 20:59 12/24/16 20:30 25 MG Quetiapine Fumarate (seroQUEL TAB) 25 mg Q6H PRN PO 12/24/16 03:15 01/23/17 03:14 12/25/16 10:15 25 MG Sertraline HCl (Zoloft Tab) 25 mg QAM PO 12/24/16 09:00 01/23/17 08:59 12/26/16 07:44 25 MG Aspirin (Ecotrin Tab) 81 mg QAM PO 12/24/16 09:00 01/23/17 08:59 12/26/16 07:45 81 MG Enoxaparin Sodium (Lovenox Inj) 30 mg QAM SQ 12/24/16 09:30 01/23/17 09:29 12/24/16 08:35 30 MG Acetaminophen (Tylenol Tab) 500 mg Q6H PRN PO 12/24/16 04:30 01/23/17 04:29 Haloperidol Lactate (Haldol Inj) 2 mg Q30M PRN IM 12/25/16 19:45 01/24/17 19:44 Impression 86 year old female with severe dementia Plan 1. would use Seroquel as needed as prescribed by psychiatry watch for sedation 2. Aricept and Namenda would have no roll in treatment at this stage of dementia 3. Zoloft started for depression 4. Haldol would watch dosing due to age and renal issues 5. nutrition appears to be an issue would add CIB or boost 6. family input would be helpful for direction of management 7. will be available for questions concerns 8. would return to facility as soon as stable medically I have seen and discussed above patient with Dr Kim Clayotn, neurology Pt seen and examined, pt much less agitated and more agreeable. Awake, alert, confused, moving all fours symmetrically as she moves in bed. Impression: moderately severe AD, agree with Seroquel use, which appears to have been helpful. Will sign off. KOTA Clayton MD
[2016-12-26 14:53] VITALS: BP 152/92; PULSE 110; TEMP 36.7; O2SAT 96
[2016-12-26] MEDS: QUETIAPINE FUMARATE 25 MG TAB PO SCH (19:38)
[2016-12-26 23:13] VITALS: BP 125/78; PULSE 105; TEMP 36.8; O2SAT 94
[2016-12-27 07:52] VITALS: BP 128/84; PULSE 111; TEMP 36.8; O2SAT 95
[2016-12-27] MEDS: SERTRALINE HCL 50 MG TAB PO SCH (07:55)
[2016-12-27] MEDS: ENOXAPARIN 30 MG/0.3 ML SYR SQ SCH (07:56)
[2016-12-27] MEDS: ASPIRIN 81 MG ECTAB PO SCH (07:56)
[2016-12-27 11:05] LABS: BENZODIAZEPINE, URINE NEG (NEG); COCAINE,URINE NEG (NEG); PHENCYCLIDINE, URINE NEG (NEG)
[2016-12-27 11:12] VITALS: PULSE 107
[2016-12-27 15:20] VITALS: BP 133/83; PULSE 116; TEMP 36.6; O2SAT 94
--- NOTE | 2016-12-27 15:24 | Progress Note ---
Internal Med Progress Note Date of Service: Dec 27, 2016. Provider Documentation: SUBJECTIVE: Patient is seen and examined at bedside. Intermittent agitation per staff. Patient reports feeling well. Denies any symptoms. OBJECTIVE: Vital Signs-as noted below Physical Exam: General Appearance:Moderately built and nourished, no apparent distress Head: normocephalic, Atraumatic Eyes: normal inspection, EOMI, PERRL Neck: supple, no JVD, Trachea midline Respiratory/Chest: Normal breath sounds, CTA Cardiovascular: S1, S2, Tachycardia, No murmur Abdomen/GI:Soft, Non tender, Bowel sounds present Extremities/Musculoskelatal:normal inspection, no edema Neurologic/Psych:Grossly no focal neurological deficits, +dementia Skin: normal color, warm Lab data as noted below. ASSESSMENT & PLAN: DELIRIUM / DEMENTIA Patient has progressive dementia since 5 years, probably Alzheimer's disease Patient initially was admitted to personal care in Jul and later transferred to dementia care unit. Patient was admitted secondary to combative behavior while at dementia unit Superimposed delirium could be a contributor- secondary to meds TSH, B12: wnl Cholinesterase inhibitors or memantine not recommended because of anticipated side effects without likely benefit. Neurology and Psychiatry input appreciated Benzodiazepines, narcotics, anti-cholinergic meds should be avoided. Continue quetiapine 25 mg HS + PRN for severe delirium. (PRN dose will need to be stopped before transfer to another facility). Haldol PRN agitation. Continue Aspirin for possible component of vascular dementia. Disposition: Family prefers patient to return to [facility]. Patient may require geriatric psychiatry inpatient She is currently under 302. DEPRESSION Had been on mirtazapine at least since Jul and trazodone since Oct: discontinued secondary to confusion Continue Sertraline 25 mg daily SINUS TACHYCARDIA: Asymptomatic DVT Px SQ Heparin Ambulate. CONTACT INFO: Ni ([id number]) [phone] No clinical evidence of current UTI. Dirty urinalysis with many epithelial cells. Urine culture negative. Patient had received appropriate treatment for UTI as outpatient; no current indication for antibiotics. Consultants: Neurology Psychiatry Disposition: Awaiting for placement boil off worker consulted for discharge planning Vital Signs: Date Time Temp Pulse Resp B/P Pulse Ox O2 Delivery O2 Flow Rate FiO2 12/27/16 11:12 107 12/27/16 07:56 Room Air 12/27/16 07:52 36.8 111 18 128/84 95 Room Air 12/27/16 00:12 Room Air 12/26/16 23:13 36.8 105 18 125/78 94 Room Air 12/26/16 19:43 Room Air 12/26/16 16:27 Room Air Lab Results: Results Past 24 Hours Test 12/27/16 10:09 Range/Units Urine Opiates Screen NEG NEG Urine Methadone, Qualitative NEG NEG Urine Barbiturates NEG NEG Urine Phencyclidine (PCP) Level NEG NEG Ur Amphetamine/Methamphetamine NEG NEG MDMA (Ecstasy) Screen NEG NEG Urine Benzodiazepines Screen NEG NEG Urine Cocaine Metabolite NEG NEG Urine Marijuana (THC) NEG NEG
[2016-12-27] MEDS: QUETIAPINE FUMARATE 25 MG TAB PO SCH (20:52)
[2016-12-27 23:59] VITALS: BP 131/83; PULSE 122; TEMP 36.6; O2SAT 96
[2016-12-28 07:02] VITALS: BP 112/77; PULSE 84; TEMP 36.4; O2SAT 94
[2016-12-28] MEDS: ASPIRIN 81 MG ECTAB PO SCH (08:30)
[2016-12-28] MEDS: SERTRALINE HCL 50 MG TAB PO SCH (08:30)
[2016-12-28] MEDS: ENOXAPARIN 30 MG/0.3 ML SYR SQ SCH (08:31)
[2016-12-28 15:08] VITALS: BP 128/79; PULSE 122; TEMP 36.8; O2SAT 99
--- NOTE | 2016-12-28 15:31 | Progress Note ---
Internal Med Progress Note Date of Service: Dec 28, 2016. Provider Documentation: SUBJECTIVE: Patient is seen and examined at bedside. Patient is pleasant and is cooperative today. Denies any symptoms. OBJECTIVE: Vital Signs-as noted below Physical Exam: General Appearance:Moderately built and nourished, no apparent distress Head: normocephalic, Atraumatic Eyes: normal inspection, EOMI, PERRL Neck: supple, no JVD, Trachea midline Respiratory/Chest: Normal breath sounds, CTA Cardiovascular: S1, S2, Tachycardia, No murmur Abdomen/GI:Soft, Non tender, Bowel sounds present Extremities/Musculoskelatal:normal inspection, no edema Neurologic/Psych:Grossly no focal neurological deficits, +dementia Skin: normal color, warm Lab data as noted below. ASSESSMENT & PLAN: DELIRIUM / DEMENTIA Patient has progressive dementia since 5 years, probably Alzheimer's disease Patient initially was admitted to personal care in Jul and later transferred to dementia care unit. Patient was admitted secondary to combative behavior while at dementia unit Superimposed delirium could be a contributor- secondary to meds TSH, B12: wnl Cholinesterase inhibitors or memantine not recommended because of anticipated side effects without likely benefit. Neurology and Psychiatry input appreciated Benzodiazepines, narcotics, anti-cholinergic meds to be avoided. Continue quetiapine 25 mg HS Haldol PRN agitation. Continue Aspirin for possible component of vascular dementia. steel worker consulted for placement. DEPRESSION Had been on mirtazapine at least since Jul and trazodone since Oct: discontinued secondary to confusion Continue Sertraline 25 mg daily SINUS TACHYCARDIA: Asymptomatic Will recheck EKG DVT Px SQ Heparin Ambulate. CONTACT INFO: Ni ([id number]) [phone] No clinical evidence of current UTI. Dirty urinalysis with many epithelial cells. Urine culture negative. Patient had received appropriate treatment for UTI as outpatient; no current indication for antibiotics. Consultants: Neurology Psychiatry Disposition: Awaiting for placement steel worker consulted for discharge planning Vital Signs: Date Time Temp Pulse Resp B/P Pulse Ox O2 Delivery O2 Flow Rate FiO2 12/28/16 15:08 36.8 122 18 128/79 99 Room Air 12/28/16 10:01 Room Air 12/28/16 07:02 36.4 84 18 112/77 94 Room Air 12/28/16 00:00 Room Air 12/27/16 23:59 36.6 122 24 131/83 96 Room Air 12/27/16 16:30 Room Air
[2016-12-28] MEDS: QUETIAPINE FUMARATE 25 MG TAB PO SCH (21:34)
[2016-12-29] MEDS ORDERED: OPTIRAY 320 IV PRN (02:45)
[2016-12-29 05:53] LABS: BUN/CREATININE RATIO 18.1 (10-20); CALCIUM 8.8 mg/dl (8.5-10.1); CREATININE 0.59 mg/dl (0.60-1.20); MAGNESIUM 2.1 mg/dl (1.8-2.4); POTASSIUM 3.5 mmol/L (3.5-5.1)
[2016-12-29 06:09] LABS: BASO % 0.6 %; BASO ABS # 0.04 K/uL (0-0.2); COMPLETE YES; EOS % 1.3 %; HEMATOCRIT 37.4 % (37-47); IG% 0.4 %; LYMPH % 18.8 %; LYMPH ABS # 1.32 K/uL (1.2-3.4); MEAN CELL VOLUME 88.4 fL (80-100); MEAN CORPUSCULAR HEMOGLOBIN 29.3 pg (25-34); MEAN CORPUSCULAR HGB CONC 33.2 g/dl (32-36); MEAN PLATELET VOLUME 11.4 fL (7.4-10.4); MONO % 17.6 %; NEUT % 61.3 %; PLATELET COUNT 233 K/uL (130-400); RED BLOOD COUNT 4.23 M/uL (4.2-5.4); WHITE BLOOD COUNT 7.03 K/uL (4.8-10.8)
[2016-12-29 07:20] VITALS: BP 100/61; PULSE 102; TEMP 36.6; O2SAT 97
[2016-12-29] MEDS: SERTRALINE HCL 50 MG TAB PO SCH (07:23)
[2016-12-29] MEDS: ASPIRIN 81 MG ECTAB PO SCH (07:23)
[2016-12-29] MEDS: ENOXAPARIN 30 MG/0.3 ML SYR SQ SCH (07:23)
--- NOTE | 2016-12-29 07:31 | DIAGNOSTIC IMAGING REPORT ---
CT ANGIOGRAM OF THE CHEST CLINICAL HISTORY: Tachycardia. COMPARISON STUDY: Chest x-ray dated 12/24/2016 TECHNIQUE: Following the IV administration of 92 mL of Optiray-320, CT angiogram of the thorax was performed from the thoracic inlet to the lung bases utilizing the pulmonary embolus protocol. Images are reviewed in the axial, sagittal, and coronal planes. IV contrast was administered without complication. MIP imaging was performed. CT DOSE: 308.50 mGy.cm FINDINGS: There is a multinodular thyroid gland with thyroid nodules measuring up to 6 mm in diameter. No pathologically enlarged axillary mediastinal or hilar lymph nodes were visualized. There was no evidence of thoracic aortic dilatation. There were no pulmonary artery filling defects to indicate acute pulmonary embolism. There are trace bilateral pleural effusions Evaluation of the parenchyma is limited due to respiratory motion artifact. There is no focal pulmonary consolidation. There is a 1.8 mm left lower lobe pulmonary nodule as visualized in image 211/[id number]. IMPRESSION: 1. No CT evidence of acute pulmonary embolism 2. Cardiomegaly and trace pleural effusions 3. No evidence of focal pulmonary consolidation 4. Multinodular thyroid gland. Electronically signed by: Abdoul Hare M.D. 12/29/2016 7:29 AM Dictated Date/Time: 12/29/2016 7:25 AM
--- NOTE | 2016-12-29 08:24 | Progress Note ---
Internal Med Progress Note Date of Service: Dec 29, 2016. Provider Documentation: SUBJECTIVE: Patient is seen and examined at bedside. Feels well this morning. Denies chest pain, palpitations, SOB. Planned to be discharged to [facility] today. OBJECTIVE: Vital Signs-as noted below Physical Exam: General Appearance:Moderately built and nourished, no apparent distress Head: normocephalic, Atraumatic Eyes: normal inspection, EOMI, PERRL Neck: supple, no JVD, Trachea midline Respiratory/Chest: Normal breath sounds, CTA Cardiovascular: S1, S2, Tachycardia, No murmur Abdomen/GI:Soft, Non tender, Bowel sounds present Extremities/Musculoskelatal:normal inspection, no edema Neurologic/Psych:Grossly no focal neurological deficits, +dementia Skin: normal color, warm Lab data as noted below. ASSESSMENT & PLAN: DELIRIUM / DEMENTIA Patient has progressive dementia since 5 years, probably Alzheimer's disease Patient initially was admitted to personal care in Jul and later transferred to dementia care unit. Patient was admitted secondary to combative behavior while at dementia unit Superimposed delirium could be a contributor- secondary to meds TSH, B12: wnl Cholinesterase inhibitors or memantine not recommended because of anticipated side effects without likely benefit. Neurology and Psychiatry input appreciated Benzodiazepines, narcotics, anti-cholinergic meds to be avoided. Continue quetiapine 25 mg HS Haldol PRN agitation. Continue Aspirin for possible component of vascular dementia. station worker consulted for placement. DEPRESSION Had been on mirtazapine at least since Jul and trazodone since Oct: discontinued secondary to confusion Continue Sertraline 25 mg daily SINUS TACHYCARDIA: Asymptomatic EKG:asymptomatic CTA: Negative for PE Multinodular thyroid gland on CTA: TSH is wnl Consider thyroid work up as outpatient DVT Px SQ Heparin Ambulate. CONTACT INFO: Ni ([id number]) [phone] No clinical evidence of current UTI. Dirty urinalysis with many epithelial cells. Urine culture negative. Patient had received appropriate treatment for UTI as outpatient; no current indication for antibiotics. Consultants: Neurology Psychiatry Disposition: Plan to discharge to [facility] today Appreciate station worker help. Vital Signs: Date Time Temp Pulse Resp B/P Pulse Ox O2 Delivery O2 Flow Rate FiO2 12/29/16 07:20 36.6 102 20 100/61 97 Room Air 2/3/17 00:15 Room Air 12/28/16 16:20 Room Air 12/28/16 15:08 36.8 122 18 128/79 99 Room Air 12/28/16 10:01 Room Air Lab Results: Results Past 24 Hours Test 12/28/16 20:47 12/29/16 04:55 Range/Units D-Dimer 950 0-500 ug/L FEU White Blood Count 7.03 4.8-10.8 K/uL Red Blood Count 4.23 4.2-5.4 M/uL Hemoglobin 12.4 12.0-16.0 g/dL Hematocrit 37.4 37-47 % Mean Corpuscular Volume 88.4 80-100 fL Mean Corpuscular Hemoglobin 29.3 25-34 pg Mean Corpuscular Hemoglobin Concent 33.2 32-36 g/dl Platelet Count 233 130-400 K/uL Mean Platelet Volume 11.4 7.4-10.4 fL Neutrophils (%) (Auto) 61.3 % Lymphocytes (%) (Auto) 18.8 % Monocytes (%) (Auto) 17.6 % Eosinophils (%) (Auto) 1.3 % Basophils (%) (Auto) 0.6 % Neutrophils # (Auto) 4.31 1.4-6.5 K/uL Lymphocytes # (Auto) 1.32 1.2-3.4 K/uL Monocytes # (Auto) 1.24 0.11-0.59 K/uL Eosinophils # (Auto) 0.09 0-0.5 K/uL Basophils # (Auto) 0.04 0-0.2 K/uL RDW Standard Deviation 47.4 36.4-46.3 fL RDW Coefficient of Variation 14.6 11.5-14.5 % Immature Granulocyte % (Auto) 0.4 % Immature Granulocyte # (Auto) 0.03 0.00-0.02 K/uL Sodium Level 139 136-145 mmol/L Potassium Level 3.5 3.5-5.1 mmol/L Chloride Level 103 98-107 mmol/L Carbon Dioxide Level 28 21-32 mmol/L Anion Gap 8.0 3-11 mmol/L Blood Urea Nitrogen 11 7-18 mg/dl Creatinine 0.59 0.60-1.20 mg/dl Est Creatinine Clear Calc Drug Dose 57.6 ml/min Estimated GFR () 96.9 Estimated GFR (Non- 83.6 BUN/Creatinine Ratio 18.1 10-20 Random Glucose 92 70-99 mg/dl Calcium Level 8.8 8.5-10.1 mg/dl Magnesium Level 2.1 1.8-2.4 mg/dl
[2016-12-29] MEDS ORDERED: ASPEC81 PO (08:35)
[2016-12-29] MEDS ORDERED: ZLF50 PO (08:35)
[2016-12-29] MEDS ORDERED: SRQ25 PO (08:35)
--- NOTE | 2016-12-29 08:42 | Discharge Instructions ---
Discharge Instructions Admission Reason for Admission: Altered Mental Status,Uti Discharge Discharge Diagnosis / Problem: Dementia/Delirium Discharge Goals Goal(s): Decrease discomfort, Improve function Activity Recommendations Activity Limitations: resume your previous activity Driving or Machine Use: No driving . Instructions / Follow-Up Instructions / Follow-Up Follow up with on Jan 03 at 12:50pm Follow up with Dr. Kim Clayton Neurology) as needed Follow up with Psychiatry as needed Work up for multinodular Thyroid gland as outpatient per primary care physician Current Hospital Diet Patient's current hospital diet: Regular Diet Discharge Diet Recommended Diet: Regular Diet Pending Studies Studies pending at discharge: no Medical Emergencies . Who to Call and When: Medical Emergencies: If at any time you feel your situation is an emergency, please call 911 immediately. . Non-Emergent Contact Non-Emergency issues call your: Primary Care Provider Call Non-Emergent contact if: you have any medication questions . . "Provider Documentation" section prepared by Diaz Varner. VTE Core Measure Inpt VTE Proph given/why not?: Enoxaparin (Lovenox)SQ
--- NOTE | 2016-12-29 08:47 | Discharge Summary ---
Discharge Summary Admission Date: Dec 24, 2016 at 01:34 Discharge Date: Dec 29, 2016 Discharge Disposition: Personal care (Personal assisted:[facility] ) Principal Diagnosis: Dementia, Depression, Delirium Procedures: CT Head: No acute intracranial abnormality. Atrophy and microvascular ischemic changes. CTA: 1. No CT evidence of acute pulmonary embolism 2. Cardiomegaly and trace pleural effusions 3. No evidence of focal pulmonary consolidation 4. Multinodular thyroid gland. CXR: No acute process. Consultations: Neurology Psychiatry Pending Studies/Follow-Up: Follow up with on Jan 03 at 12:50pm Follow up with Dr. Kim Clayton Neurology) as needed Follow up with Psychiatry as needed Work up for multinodular Thyroid gland as outpatient per primary care physician Medication Reconciliation New Medications: Aspirin (Aspirin EC Low Dose) 81 Mg Ectab 81 MG PO QAM for 30 Days, #30 Quetiapine Fumarate (Quetiapine Fumarate) 25 Mg Tab 25 MG PO HS for 30 Days, #30 TAB Sertraline HCl (Sertraline HCl) 50 Mg Tab 25 MG PO QAM for 30 Days, #15 TAB Discontinued Medications: Acetaminophen (Tylenol) 325 Mg Tab 650 MG PO Q4, TAB Acetaminophen/Codeine (Tylenol W/Codeine #3) 300 Mg/30 Mg Tab 1 TAB PO Q4 PRN for Pain, TAB Mirtazapine Soltab (Remeron Soltab) 15 Mg Soltab 15 MG PO HS, TAB Sulfamethoxazole-Trimethoprim (Bactrim Ds 800MG/160MG) 1 Tab Tab 1 TAB PO BID 0680-2301 Trazodone Hcl (Trazodone) 50 Mg Tab 50 MG PO, TAB Admission Information HPI (per Admitting provider): 86 YO female followed by YEIMI Pardo at [facility]. The following history is gathered from [id number] by phone and clinic records. She is , from [place]. Son and [id number] live in [place]. She apparently first developed difficulties with memory about 4-5 years ago. Donepezil tried in 2013, but apparently did not offer much benefit. Still driving last summer. Worsening dementia lead to admission to [facility] in [place] around July. Noted to have hallucinations, delusional behavior, and wandering. Underwent repair of uterine prolapse in October. Started on trazodone in October which she continues to take. Seen at [facility] in [place] 11/28/16 for strep pharyngitis which was treated with cefdinir. Seen by RAMESH Agustin, TALI in Neurology Clinic on 12/15/16. It was felt that she had advanced Alzheimer's dementia and that meds such as cholinesterase inhibitors and memantine would probably have more adverse effects than benefit. Deemed unable to stay in personal care facility and transfer to a dementia facility was recommended. Diagnosed with UTI 12/16/16. Urine C&S grew E coli, treated with TMP/sulfa. Admitted to [facility]) in [place] on 12/22/16. Family reports that she seemed to be at her baseline, but was upset when they left. Over the weekend she was very agitated and at times aggressive with staff. Referred to ED around 16:00 yesterday (12/23) for psychiatric evaluation. Medical evaluation negative except for possible persistent UTI and dehydration. She was combative in ED and received 3 doses of lorazepam. Evaluated by [facility]. 302 completed. Patient referred to Hospital Medicine for admission. At the time of my assessment, patient was very somnolent and preferred to be left alone. She was unable to provide any additional history. . Physical Exam (per Admitting): General Appearance: WD/WN, no apparent distress Head: normocephalic, atraumatic Eyes: + pertinent finding (patient would not cooperate with exam) ENT: normal ENT inspection, hearing grossly normal, + pertinent finding ( patient would not cooperate with complete exam) Neck: supple, no adenopathy, thyroid normal, no JVD, trachea midline Respiratory/Chest: lungs clear, no respiratory distress, no accessory muscle use Cardiovascular: regular rate, rhythm, no edema, no gallop, no JVD, no murmur Abdomen/GI: normal bowel sounds, non tender, soft, no organomegaly, no pulsatile mass Back: no CVA tenderness Extremities/Musculoskelatal: normal inspection, no calf tenderness, no pedal edema Neurologic/Psych: + pertinent finding (confused, somnolent; unable to assess CN; moves all 4 extr; plantar reflexes downgoing) Skin: normal color, warm/dry Lymphatic: no adenopathy Hospital Course DELIRIUM / DEMENTIA Patient has progressive dementia since 5 years, probably Alzheimer's disease Patient initially was admitted to personal care in Jul and later transferred to dementia care unit. Patient was admitted secondary to combative behavior while at dementia unit Superimposed delirium could be a contributor- secondary to meds TSH, B12: wnl Cholinesterase inhibitors or memantine not recommended because of anticipated side effects without likely benefit. Neurology and Psychiatry input appreciated Benzodiazepines, narcotics, anti-cholinergic meds to be avoided. Continue quetiapine 25 mg HS Haldol PRN agitation. Continue Aspirin for possible component of vascular dementia. floorworker lasting consulted for placement. DEPRESSION Had been on mirtazapine at least since Jul and trazodone since Oct: discontinued secondary to confusion Continue Sertraline 25 mg daily SINUS TACHYCARDIA: Asymptomatic EKG:asymptomatic CTA: Negative for PE Multinodular thyroid gland on CTA: TSH is wnl Consider thyroid work up as outpatient DVT Px SQ Heparin Ambulate. CONTACT INFO: Ni ([id number]) [phone] No clinical evidence of current UTI. Dirty urinalysis with many epithelial cells. Urine culture negative. Patient had received appropriate treatment for UTI as outpatient; no current indication for antibiotics. Consultants: Neurology Psychiatry Disposition: Plan to discharge to [facility] today Appreciate floorworker lasting help. Total time spent on discharge = This includes examination of the patient, discharge planning, medication reconciliation, and communication with other providers. Discharge Instructions Discharge Instructions Admission Reason for Admission: Altered Mental Status,Uti Discharge Discharge Diagnosis / Problem: Dementia/Delirium Discharge Goals Goal(s): Decrease discomfort, Improve function Activity Recommendations Activity Limitations: resume your previous activity Driving or Machine Use: No driving . Instructions / Follow-Up Instructions / Follow-Up Follow up with on Jan 03 at 12:50pm Follow up with Dr. Kim Clayton Neurology) as needed Follow up with Psychiatry as needed Work up for multinodular Thyroid gland as outpatient per primary care physician Current Hospital Diet Patient's current hospital diet: Regular Diet Discharge Diet Recommended Diet: Regular Diet Pending Studies Studies pending at discharge: no Medical Emergencies . Who to Call and When: Medical Emergencies: If at any time you feel your situation is an emergency, please call 911 immediately. . Non-Emergent Contact Non-Emergency issues call your: Primary Care Provider Call Non-Emergent contact if: you have any medication questions . . "Provider Documentation" section prepared by Diaz Varner. VTE Core Measure Inpt VTE Proph given/why not?: Enoxaparin (Lovenox)SQ
--- NOTE | 2016-12-29 09:05 | ECHOCARDIOGRAM REPORT ---
*NOTICE TO RECEIVING [employer] [facility] This information is strictly Confidential and protected under [place] law. [place] law prohibits you from making any further disclosure of this information unless further disclosure is expressly permitted by the written consent of the person to whom it pertains or is authorized by law. A general authorization for the release of medical or other information is not sufficient for this purpose. Hospital accepts no responsibility if the information is made available to any other person, INCLUDING THE PATIENT. Interpretation Summary * Name: JULES SETHI Study Date: 12/29/2016 07:44 AM BP: 100/61 mmHg * Patient Location: .MS2W\S\W250\S\2 HR: 102 * : 1930 (M/d/yyyy) Gender: Female Height: 63 in * Age: 86 yrs Ethnicity: CA Weight: 137 lb * Ordering Physician: Diaz Varner * Referring Physician: EDWARD * Performed By: Christie Brenner RDCS * * Reason For Study: TACHYCARDIA * BSA: 1.6 m2 * History: TACHYCARDIA * -- Conclusions -- * Normal LV chamber size and wall thickness. * Normal LV systolic function, EF 60-65%. * No segmental left ventricular wall motion abnormalities are noted. * Grade I diastolic dysfunction. * Aortic valve sclerosis mild, without significant aortic valvular stenosis. * Trace mitral regurgitation. Procedure Details * A complete two-dimensional transthoracic echocardiogram was performed (2D, M-mode, Doppler and color flow Doppler). Left Ventricle * The left ventricle is normal in size. * There is normal left ventricular wall thickness. * Ejection Fraction = 60-65%. * Left ventricular systolic function is normal. * No segmental left ventricular wall motion abnormalities are noted. * The left ventricular wall motion is normal. Right Ventricle * The right ventricular cavity size is normal (basal dimension <4.2 cm in right ventricular apical 4-chamber view). * The right ventricular systolic function is normal as assessed by tricuspid annular plane systolic excursion (TAPSE) (normal >1.5 cm). Atria * The left atrial size is normal. * Right atrial size is normal. * No ASD detected; PFO is not assessed. Mitral Valve * The mitral valve anatomy is normal. * There is no mitral valve stenosis. * There is trace mitral regurgitation. Tricuspid Valve * The tricuspid valve is normal in structure and function. Aortic Valve * The aortic valve is tricuspid. The leaflet thickness if normal. There is no aortic stenosis, and no significant insufficiency. * Aortic valve sclerosis mild, without significant aortic valvular stenosis. * There is no significant aortic regurgitation. Pulmonic Valve * The pulmonary valve is not well seen, but the Doppler examination is normal without significant regurgitation or stenosis. Great Vessels * The aortic root and proximal ascending aorta are normal sized. Pericardium/Pleural * There is no pericardial effusion. Left Ventricular Diastolic Function * Grade I diastolic dysfunction, (abnormal relaxation pattern). MMode 2D Measurements and Calculations IVSd 0.81 cm IVSs 1.1 cm LVIDd 3.5 cm LVIDs 2.5 cm LVPWd 1.1 cm LVPWs 1.5 cm IVS/LVPW 0.72 FS 28.5 % EDV(Teich) 52.1 ml ESV(Teich) 23.0 ml EF(Teich) 55.9 % EDV(cubed) 44.2 ml ESV(cubed) 16.2 ml EF(cubed) 63.4 % % IVS thick 31.8 % % LVPW thick 35.8 % LV mass(C)d 98.6 grams LV mass(C)dI 59.9 grams/m\S\2 LV mass(C)s 97.4 grams LV mass(C)sI 59.1 grams/m\S\2 SV(Teich) 29.1 ml SI(Teich) 17.7 ml/m\S\2 SV(cubed) 28.0 ml SI(cubed) 17.0 ml/m\S\2 Ao root diam 3.0 cm Ao root area 7.0 cm\S\2 LA dimension 2.4 cm LA/Ao 0.82 LVAd ap4 29.8 cm\S\2 LVLd ap4 8.0 cm EDV(MOD-sp4) 91.4 ml EDV(sp4-el) 94.6 ml LVAs ap4 16.5 cm\S\2 LVLs ap4 6.3 cm ESV(MOD-sp4) 36.6 ml ESV(sp4-el) 36.7 ml EF(MOD-sp4) 60.0 % EF(sp4-el) 61.2 % LVAd ap2 26.4 cm\S\2 LVLd ap2 7.8 cm EDV(MOD-sp2) 72.9 ml EDV(sp2-el) 75.6 ml LVAs ap2 14.2 cm\S\2 LVLs ap2 6.4 cm ESV(MOD-sp2) 27.3 ml ESV(sp2-el) 26.8 ml EF(MOD-sp2) 62.5 % EF(sp2-el) 64.6 % LVLd %diff -1.60 % EDV(MOD-bp) 82.9 ml LVLs %diff 1.3 % ESV(MOD-bp) 31.7 ml EF(MOD-bp) 61.8 % SV(MOD-sp4) 54.8 ml SI(MOD-sp4) 33.3 ml/m\S\2 SV(MOD-sp2) 45.6 ml SI(MOD-sp2) 27.7 ml/m\S\2 SV(MOD-bp) 51.3 ml SI(MOD-bp) 31.1 ml/m\S\2 SV(sp4-el) 57.9 ml SI(sp4-el) 35.2 ml/m\S\2 SV(sp2-el) 48.8 ml SI(sp2-el) 29.6 ml/m\S\2 Doppler Measurements and Calculations MV E max yan 66.0 cm/sec MV A max yan 71.8 cm/sec MV E/A 0.92 MV dec time 0.20 sec Ao V2 max 166.8 cm/sec Ao max PG 11.1 mmHg Ao max PG (full) 6.4 mmHg LV V1 max PG 4.8 mmHg LV V1 max 109.1 cm/sec TR max yan 228.0 cm/sec
[2016-12-29 09:30] VITALS: BP 100/61; PULSE 102; TEMP 36.6; O2SAT 97
== END 2016-12-29 10:27 | disposition home or self-care (01) | DRG 57 ==
LOC: ENRESERVTM → ENRESERVDT → C.EDC 15:46 → C.MS2W 12-24 01:34
PROVIDERS: ADMIT Hospitalist; ATTEND Internal Medicine
DX: G30.9 Alzheimer's disease, unspecified (principal); F02.81 Dementia in other diseases classified elsewhere, unspecified severity, with behavioral disturbance; N39.0 Urinary tract infection, site not specified; F01.50 Vascular dementia, unspecified severity, without behavioral disturbance, psychotic disturbance, mood disturbance, and anxiety; E86.0 Dehydration; I10 Essential (primary) hypertension; F32.9 Major depressive disorder, single episode, unspecified; E78.5 Hyperlipidemia, unspecified; M81.0 Age-related osteoporosis without current pathological fracture; E04.2 Nontoxic multinodular goiter; R00.0 Tachycardia, unspecified; R41.0 Disorientation, unspecified; Z79.899 Other long term (current) drug therapy; Z79.891 Long term (current) use of opiate analgesic

== ENCOUNTER 2017-01-19 23:07 | Emergency (ER) | payer OTHER, MEDICARE ==
[~2017-01-19] VITALS: Ht 160 cm; Wt 62.0 kg
[2017-01-19 23:07] VITALS: Ht 160 cm; Wt 62.0 kg
[~2017-01-19 23:07] MED LIST: ASPEC81 PO; SRQ25 PO; ZLF50 PO
--- NOTE | 2017-01-19 23:32 | EMERGENCY ROOM VISIT NOTE ---
History Report prepared by Dre: Karthik Martínez Under the Supervision of: Dr. Kirill Hernandez M.D. First contact with patient: 23:16 Chief Complaint: VAGINAL BLEEDING Stated Complaint: VAGINAL BLEED History of Present Illness The patient is an 86 year old demented female who presents to the Emergency Room with complaints of acute vaginal bleeding that was noted earlier today. The patient resides at [facility]. [facility] staff was assisting the patient to the bathroom when they noticed that she had some vaginal bleeding. The patient has a history of uterine prolapse. The patient was sedated en route to the ED. History was obtained from nursing staff. Complete history is limited secondary to dementia and sedation. Source of History: nursing staff Onset: today Position: other (vagina) Quality: other (bleeding) Timing: other (acute) Review of Systems ROS is limited secondary to dementia and sedation. Past Medical & Surgical Medical Problems: (1) Alzheimer's dementia (2) Dyslipidemia (3) Hypertension (4) Narrowing or closure of vagina (5) Osteoporosis (6) Uterine prolapse Surgical Problems: (1) Hx of removal of ovary Old medical records were reviewed. Nurse's notes were reviewed and I agree with. Family History Breast cancer GRANDMOTHER Esophageal cancer BROTHER Stroke FATHER Social History Smoking Status: Never Smoker Alcohol Use: none Drug Use: none Marital Status: Housing Status: prison Occupation Status: retired Current/Historical Medications Scheduled Aspirin (Aspirin 81), 81 MG PO DAILY Quetiapine Fumarate (Quetiapine Fumarate), 25 MG PO HS Sertraline (Zoloft), 50 MG PO QAM Scheduled PRN Acetaminophen Tab (Tylenol), 650 MG PO Q4 PRN for Pain Acetaminophen/Codeine (Tylenol W/Codeine #3), 1 TAB PO Q4 PRN for Pain Allergies Coded Allergies: Erythromycin (Unverified Allergy, Severe, unknown, 12/23/16) Pravastatin (Unverified Allergy, Severe, unknown, 12/23/16) Penicillins (Unverified Allergy, Intermediate, HIVES, 12/24/16) cephalosporins OK received cefdinir Nov 2016 without problems Physical Exam Vital Signs Date Time Temp Pulse Resp B/P Pulse Ox O2 Delivery O2 Flow Rate FiO2 01/20/17 02:08 57 18 107/66 96 Room Air 01/20/17 00:44 58 18 144/75 96 Room Air 01/19/17 23:07 36.6 58 18 117/67 96 Room Air Physical Exam General: Older appearing female, no acute distress, baseline dementia. HEENT: Normal cephalic atraumatic. Pupils are equal round and reactive to light. Sclerae anicteric. Extraocular movements are intact. Oropharynx is pink with moist mucous membranes. No swelling of the mouth lips or tongue. Neck: Supple with a midline trachea. No meningeal signs or stiffness, no JVD or bruits. No Stridor. Chest: Clear to auscultation bilaterally. No wheezes or rhonchi. No increased work of breathing. Heart: regular rate and rhythm. Abdomen: Soft nontender, nondistended without rebound guarding or rigidity. Extremities: No cyanosis clubbing or edema. No calf tenderness or assymetry Spine/Back. Non tender to palpation. No CVA tenderness Skin: Good turgor without rashes. Neurologic exam: Cranial nerves two through 12 are intact. Motor and sensation are intact and symmetrical throughout. Pelvic: Exam performed in the presence of female nurse director traffic and planning. No masses or prolapse, minimal blood in the vaginal vault with no active bleeding. Medical Decision & Procedures Laboratory Results 01/19/17 23:40 Red Blood Count 4.10, Mean Corpuscular Volume 88.0, Mean Corpuscular Hemoglobin 28.5, Mean Corpuscular Hemoglobin Concent 32.4, Mean Platelet Volume 10.5, Neutrophils (%) (Auto) 55.8, Lymphocytes (%) (Auto) 29.7, Monocytes (%) (Auto) 10.4, Eosinophils (%) (Auto) 3.5, Basophils (%) (Auto) 0.6, Neutrophils # (Auto ) 3.53, Lymphocytes # (Auto) 1.88, Monocytes # (Auto) 0.66, Eosinophils # (Auto ) 0.22, Basophils # (Auto) 0.04 01/19/17 23:40 Test 01/19/17 23:40 01/19/17 23:50 White Blood Count 6.33 K/uL (4.8-10.8) Red Blood Count 4.10 M/uL (4.2-5.4) Hemoglobin 11.7 g/dL (12.0-16.0) Hematocrit 36.1 % (37-47) Mean Corpuscular Volume 88.0 fL (80-100) Mean Corpuscular Hemoglobin 28.5 pg (25-34) Mean Corpuscular Hemoglobin Concent 32.4 g/dl (32-36) Platelet Count 182 K/uL (130-400) Mean Platelet Volume 10.5 fL (7.4-10.4) Neutrophils (%) (Auto) 55.8 % Lymphocytes (%) (Auto) 29.7 % Monocytes (%) (Auto) 10.4 % Eosinophils (%) (Auto) 3.5 % Basophils (%) (Auto) 0.6 % Neutrophils # (Auto) 3.53 K/uL (1.4-6.5) Lymphocytes # (Auto) 1.88 K/uL (1.2-3.4) Monocytes # (Auto) 0.66 K/uL (0.11-0.59) Eosinophils # (Auto) 0.22 K/uL (0-0.5) Basophils # (Auto) 0.04 K/uL (0-0.2) RDW Standard Deviation 51.9 fL (36.4-46.3) RDW Coefficient of Variation 16.1 % (11.5-14.5) Immature Granulocyte % (Auto) 0.0 % Immature Granulocyte # (Auto) 0.00 K/uL (0.00-0.02) Prothrombin Time 10.7 SECONDS (9.0-12.0) Prothromb Time International Ratio 1.0 (0.9-1.1) Activated Partial Thromboplast Time 25.8 SECONDS (21.0-31.0) Partial Thromboplastin Ratio 1.0 Anion Gap 8.0 mmol/L (3-11) Est Creatinine Clear Calc Drug Dose 58.6 ml/min Estimated GFR () 97.4 Estimated GFR (Non- 84.0 BUN/Creatinine Ratio 21.3 (10-20) Calcium Level 8.7 mg/dl (8.5-10.1) Urine Color YELLOW Urine Appearance CLEAR (CLEAR) Urine pH 7.0 (4.5-7.5) Urine Specific [place] 1.006 (1.000-1.030) Urine Protein NEG (NEG) Urine Glucose (UA) NEG (NEG) Urine Ketones NEG (NEG) Urine Occult Blood NEG (NEG) Urine Nitrite NEG (NEG) Urine Bilirubin NEG (NEG) Urine Urobilinogen NEG (NEG) Urine Leukocyte Esterase NEG (NEG) Laboratory studies as stated above per my review. ED Course 112: Past medical records reviewed. The patient was evaluated in room C3, and a complete history and physical examination were performed. 44: Spoke with a relative over the phone. The patient had surgery in [place] on November 08 for uterine prolapse. 52: Spoke with Dr. Lara, Obstetrics & Gynecology. He believes that the patient will be fine. She needs to make sure to apply her vaginal estrogen. 209: Spoke with the patient's family. She will go back to [facility]. Medical Decision Differential diagnosis includes vaginal bleeding, trauma, uterine prolapse, UTI , anemia, rectal bleeding, infection. This patient comes in with vaginal bleeding. This started this evening. She does have significant dementia. I talked to her family in a telephone who were able to give more history. She's been seen by Dr. Boyle in [facility] on September 30, , she had a pessary and. They did a Colpoclysis on November 08. On exam, the patient has no protrusion from the vaginal area. There is minimal blood. There is no blood coming from the rectum or the urethra. A cath was done of the bladder. The patient has no significant anemia. She has no white count to suggest infection. she has no significant active bleeding. she has no acute electrode or metabolic abnormalities. urinalysis unremarkable. I discussed this Dr. Davis, who felt she could go back to prison and to ensure that she is taking estrogen cream and he says that typically what happens when patients are on estrogen cream and don't get applied liberally, they can get some it atrophy and bleeding. I discussed this with the family. The patient will be discharged back to the prison. Consults Time Called: 44 Consulting Physician: Dr. Lara, Obstetrics & Gynecology Returned Call: 52 52: Spoke with Dr. Lara, Obstetrics & Gynecology. He believes that the patient will be fine. She needs to make sure to apply her vaginal estrogen. Impression Primary Impression: Vaginal bleeding Scribe Attestation The scribe's documentation has been prepared under my direction and personally reviewed by me in its entirety. I confirm that the note above accurately reflects all work, treatment, procedures, and medical decision making performed by me. Departure Information Dispostion Home / Self-Care Referrals Odilia Pardo, C.R.N.P. (PCP) Forms HOME CARE DOCUMENTATION FORM, IMPORTANT VISIT INFORMATION, WORK / SCHOOL INSTRUCTIONS Patient Instructions [facility] Additional Instructions Rest. Call your interior horticulturist tomorrow Dr. Boyle. You may need estrogen cream Return to ER if: Worsening symptoms, increasing bleeding, any new problems or concerns.
[2017-01-19 23:48] LABS: BASO % 0.6 %; BASO ABS # 0.04 K/uL (0-0.2); COMPLETE YES; EOS % 3.5 %; HEMATOCRIT 36.1 % (37-47); LYMPH % 29.7 %; LYMPH ABS # 1.88 K/uL (1.2-3.4); MEAN CORPUSCULAR HEMOGLOBIN 28.5 pg (25-34); MEAN CORPUSCULAR HGB CONC 32.4 g/dl (32-36); MEAN PLATELET VOLUME 10.5 fL (7.4-10.4); MONO % 10.4 %; NEUT % 55.8 %; PLATELET COUNT 182 K/uL (130-400); WHITE BLOOD COUNT 6.33 K/uL (4.8-10.8)
[2017-01-19] MEDS ORDERED: ASPI-435 PO (23:49)
[2017-01-19] MEDS ORDERED: ACET325T96 PO (23:52)
[2017-01-19] MEDS ORDERED: SERT50TA PO (23:52)
[2017-01-19] MEDS ORDERED: ACET-749 PO (23:52)
[2017-01-19 23:58] LABS: PROTHROMBIN TIME (PATIENT) 10.7 SECONDS (9.0-12.0)
[2017-01-20 00:10] LABS: BUN/CREATININE RATIO 21.3 (10-20); CALCIUM 8.7 mg/dl (8.5-10.1); CREATININE 0.58 mg/dl (0.60-1.20)
[2017-01-20 00:22] LABS: URINE APPEARANCE CLEAR (CLEAR); URINE BILIRUBIN NEG (NEG); URINE COLOR YELLOW; URINE NITRITE NEG (NEG); URINE SPECIFIC GRAVITY 1.006 (1.000-1.030); UROBILINOGEN NEG (NEG)
[2017-01-20 00:24] LABS: MANUAL MICROSCOPIC REQUIRED? NO; REVIEW REQ? NO
[2017-01-20 04:32] VITALS: BP 107/66; PULSE 57; TEMP 36.6; O2SAT 96
== END 2017-01-20 04:32 | disposition home or self-care (01) ==
LOC: EDBD 23:07 → C.EDC 23:08
DX: N93.9 Abnormal uterine and vaginal bleeding, unspecified (principal); G30.9 Alzheimer's disease, unspecified; F02.80 Dementia in other diseases classified elsewhere, unspecified severity, without behavioral disturbance, psychotic disturbance, mood disturbance, and anxiety; E78.5 Hyperlipidemia, unspecified; I10 Essential (primary) hypertension; M81.0 Age-related osteoporosis without current pathological fracture; Z80.3 Family history of malignant neoplasm of breast; Z80.0 Family history of malignant neoplasm of digestive organs; Z82.0 Family history of epilepsy and other diseases of the nervous system; Z79.82 Long term (current) use of aspirin; Z79.899 Other long term (current) drug therapy

== ENCOUNTER → 2017-03-02 | Outpatient (CLI) | payer OTHER, MEDICARE ==
[~2017-03-02] MED LIST changes: +ACET-749 PO; +ACET325T96 PO; -ASPEC81 PO; +ASPI-435 PO; +SERT50TA PO; -ZLF50 PO
== END | disposition home or self-care (01) ==
LOC: C.LABSPEC 13:43
PROVIDERS: ATTEND Nurse Practitioner
DX: J06.9 Acute upper respiratory infection, unspecified (principal); N81.4 Uterovaginal prolapse, unspecified; R32 Unspecified urinary incontinence; R41.0 Disorientation, unspecified; F03.91 Unspecified dementia, unspecified severity, with behavioral disturbance; R45.4 Irritability and anger

== ENCOUNTER 2017-11-29 11:46 | Emergency (ER) | payer OTHER ==
[~2017-11-29] VITALS: Ht 157.5 cm; Wt 68.1 kg
--- NOTE | 2017-11-29 12:04 | EMERGENCY ROOM VISIT NOTE ---
History Report prepared by Dre: Venancio Gu Under the Supervision of: Dr. Marcelo Leal M.D. First contact with patient: 11:56 Stated Complaint: FALL/NOSE SWELLING History of Present Illness The patient is a 87 year old female who presents to the Emergency Room with complaints of a fall just prior to arrival. The patient fell forward and hit her nose with some bleeding. The patient denies dizziness, abdominal pain, nausea, vomiting, diarrhea, cough, and congestion. Of note, the patient has a history of dementia. Pt denies LOC, headache, fevers, chills, diaphoresis, visual changes, neck pain , chest pain, breathing difficulties, nausea, vomiting, abdominal pain, back pain, melena, hematochezia, urinary symptoms, numbness, weakness, lymphadenopathy, rash, or other complaints. Source of History: patient Onset: EDUCATIONAL AID Position: head (pt fell on her nose) Timing: resolved Associated Symptoms: No nausea, No vomiting, No abdominal pain, No diarrhea Note: Pt denies dizziness Review of Systems See HPI for pertinent positives and negatives. A total of ten systems were reviewed and were otherwise negative. Past Medical & Surgical Medical Problems: (1) Alzheimer's dementia (2) Dyslipidemia (3) Hypertension (4) Narrowing or closure of vagina (5) Osteoporosis (6) Uterine prolapse Surgical Problems: (1) Hx of removal of ovary Family History Breast cancer GRANDMOTHER Esophageal cancer BROTHER Stroke FATHER Social History Smoking Status: Never Smoker Alcohol Use: none Drug Use: none Marital Status: Housing Status: long term Occupation Status: retired Current/Historical Medications Scheduled Aspirin (Aspirin 81), 81 MG PO DAILY Cetirizine (Zyrtec), 10 MG PO DAILY Clotrimazole W/ Betamethasone (Lotrisone), 1 APPLN TOP AMPM Dextromethorphan-Guaifenesin (Mucinex Dm Maximum Streng), 1 TAB PO BID Eucerin (Eucerin), 0 TOP DAILY Hydrocortisone (Hydrocortisone), 1 APPLN TOP Q12 Pseudoephedrine-Guaifenesin (Mucinex D), 1 TAB PO Q12 Quetiapine Fumarate (Quetiapine Fumarate), 25 MG PO HS Quetiapine Fumarate (Seroquel), 0.5 MG PO 1200 Saline ([place] Nasal [place]), 1 SPRAY PRIYANKA UD Sertraline (Zoloft), 75 MG PO QAM Scheduled PRN Acetaminophen Tab (Tylenol), 650 MG PO Q4 PRN for Pain Acetaminophen/Codeine (Tylenol W/Codeine #3), 1 TAB PO Q4 PRN for Pain Allergies Coded Allergies: Erythromycin (Unverified Allergy, Severe, unknown, 11/29/17) Pravastatin (Unverified Allergy, Severe, unknown, 11/29/17) Penicillins (Unverified Allergy, Intermediate, HIVES, 11/29/17) cephalosporins OK received cefdinir Nov 2016 without problems Physical Exam Vital Signs Date Time Temp Pulse Resp B/P (MAP) Pulse Ox O2 Delivery O2 Flow Rate FiO2 11/29/17 13:49 67 20 135/76 11/29/17 12:08 36.8 67 16 109/77 99 Room Air Physical Exam GENERAL: Awake, alert, well-appearing, in no distress HENT: Normocephalic, atraumatic. Oropharynx unremarkable. EYES: Normal conjunctiva. Sclera non-icteric. NECK: Supple. No nuchal rigidity. FROM. No JVD. RESPIRATORY: Clear to auscultation. CARDIAC: Regular rate, normal rhythm. Extremities warm and well perfused. Pulses equal. ABDOMEN: Soft, non-distended. No tenderness to palpation. No rebound or guarding. No masses. RECTAL: Deferred. MUSCULOSKELETAL: Chest examination reveals no tenderness. The back is symmetrical on inspection without obvious abnormality. There is no CVA tenderness to palpation. No joint edema. LOWER EXTREMITIES: Calves are equal size bilaterally and non-tender. No edema. No discoloration. NEURO: Normal sensorium. No sensory or motor deficits noted. SKIN: No rash or jaundice noted. Medical Decision & Procedures ER Provider Diagnostic Interpretation: Radiology results as stated below per my review and radiologist interpretation: PELVIS 1 OR 2 VIEW ROUTINE CLINICAL HISTORY: pain fall trauma. Pain. COMPARISON: None. DISCUSSION: The bones and joint spaces appear intact. There is no evidence of fracture, dislocation or bony disease. There is no evidence for soft tissue swelling. IMPRESSION: Negative study. The above report was generated using voice recognition software. It may contain grammatical, syntax or spelling errors. Electronically signed by: Alphonso Newby M.D. 11/29/2017 12:21 PM Dictated Date/Time: 11/29/2017 12:21 PM FACIAL BONES-MXILLOFAC WITHOUT CLINICAL HISTORY: 87 years-old Female presenting with pain fall. TECHNIQUE: Multidetector CT of the face was performed without the use of intravenous contrast. IV contrast: None. A dose lowering technique was used consistent with the principles of ALARA (as low as reasonably achievable). COMPARISON: CT head from 12/24/2016. CT DOSE (mGy.cm): The estimated cumulative dose is 542.52 mGycm. FINDINGS: Hide Cleaner topogram: Unremarkable. Minimal mucosal thickening in anterior ethmoid air cells. Remainder of paranasal sinuses and mastoid air cells clear. Leftward bony nasal septal deviation with bony spurring and bridging on the left resulting in narrowing of the left aspect of the nasal cavity. Orbits intact. Amalgam slightly limits evaluation of the oral cavity. Within the limitation, the mandible is intact. No significant periapical lucency. Skull base intact. Limited intracranial evaluation demonstrates likely age-related parenchymal volume loss. Possible chronic small vessel ischemic change in the subcortical and periventricular white matter. Superficial soft tissues of the face demonstrate possible minimal subcutaneous infiltration immediately inferior to the right premaxillary region. No hematoma. No deep soft tissue abnormality within limitations of noncontrast technique. Degenerative changes of the spine with focal well-defined lucent lesions noted at several levels, indeterminate but possibly cystic change related to degenerative joint/disc disease. IMPRESSION: 1. No acute osseous injury of the face. 2. Possible minimal contusion in the subcutaneous soft tissues immediately inferior to the right premaxillary region. No hematoma or other evidence of soft tissue injury. 3. Well-defined lucent lesions noted at several vertebral body levels, indeterminate but possibly cystic change related to degenerative joint/disc disease. Electronically signed by: Royal Garcia M.D. 11/29/2017 1:09 PM Dictated Date/Time: 11/29/2017 1:[address] SCAN OF THE BRAIN WITHOUT IV CONTRAST CLINICAL HISTORY: Fall. Headache. COMPARISON STUDY: CT of the brain dated 12/24/2016. TECHNIQUE: Unenhanced axial CT scan of the brain is performed from the vertex to the skull base. A dose lowering technique was utilized adhering to the principles of ALARA. CT DOSE: 638.56 mGycm FINDINGS: Brain parenchyma: There are age-related involutional changes noting mild subcortical and periventricular microangiopathic change. There is no hemorrhage, mass effect, or evidence of acute territorial ischemia by CT criteria. Banks-white matter is preserved. No extra-axial fluid collection is seen. Ventricles, sulci, cisterns: Prominent secondary to involutional change. Intracranial vasculature: There is atherosclerotic calcification of the cavernous carotid arteries. Calvarium: The Skeletal structures are osteopenic. No depressed calvarial fracture is seen. Sinuses and mastoids: The visualized paranasal sinuses are clear. The mastoid air cells are well pneumatized. Orbits: The bony orbits are grossly intact. IMPRESSION: There is no hemorrhage, mass effect, or evidence of acute territorial ischemia by CT criteria. Electronically signed by: Ishan Gonzalez M.D. 11/29/2017 12:55 PM Dictated Date/Time: 11/29/2017 12:[address] SCAN OF THE CERVICAL SPINE CLINICAL HISTORY: Fall. Neck pain. COMPARISON STUDY: No priors. TECHNIQUE: CT scan of the cervical spine is performed from the skull base to the upper thoracic spine. Images are reviewed in the axial, sagittal, and coronal planes. IV contrast was not administered for this examination. A dose lowering technique was utilized adhering to the principles of ALARA. CT DOSE: 472.31 mGycm FINDINGS: Skeletal structures: The skeletal structures are osteopenic. There is no evidence of fracture or subluxation involving the cervical spine. Vertebral body height is maintained. There is no anterolisthesis at C3-C4. Alignment is otherwise preserved. There is straightening of the cervical lordosis. The odontoid process and lateral masses are intact. The atlantoaxial articulation is preserved noting advanced productive degenerative change. Cystic degenerative changes seen at the base of the dens. Tiny anterior osteophytes are seen throughout. The spinous processes appear intact. Advanced an plate sclerosis is seen at C5-C6 and C6-C7. There is moderate multilevel cervical spondylosis. Uncovertebral and facet arthropathy contribute sterile foraminal stenosis at several levels. Intervertebral discs: There is advanced disc space narrowing seen at C4-C5, C5-C6, and C6-C7. Mild disc space narrowing is seen at the remaining cervical levels. Central canal: Widely patent. Soft tissues: The prevertebral and paraspinous soft tissues are within normal limits. Numerous calcified tonsilliths are observed. Calvarium: The visualized calvarium at the skull base appears intact. Brain parenchyma: Partially visualized brain parenchyma the skull base is within normal limits. Sinuses and mastoids: The visualized paranasal sinuses are clear. The mastoid air cells are well pneumatized. Lung apices: Clear as visualized noting mild apical scarring. IMPRESSION: 1. There is no evidence of fracture or subluxation involving the cervical spine. 2. Osteopenia and spondylotic change as above. Electronically signed by: Ishan Gonzalez M.D. 11/29/2017 1:08 PM Dictated Date/Time: 11/29/2017 12:58 PM SINGLE VIEW CHEST CLINICAL HISTORY: Generalized abdominal pain. FINDINGS: An AP, portable, upright chest radiograph is compared to study dated 12/24/2016 and correlated with chest CT dated 12/29/16. The examination is degraded by portable technique and patient rotation. The heart is enlarged and there is atherosclerotic calcification of the thoracic aorta. The pulmonary vasculature is noncongested. Chronic interstitial thickening is similar to previous. There are bibasilar airspace opacities. No large pleural effusion or pneumothorax is seen. The skeletal structures are osteopenic. The bony thorax is grossly intact. IMPRESSION: 1. Cardiomegaly without radiographic evidence of congestive failure. 2. There are bibasilar airspace opacities, likely representing atelectasis. Clinical correlation will be required. Electronically signed by: Ishan Gonzalez M.D. 11/29/2017 12:21 PM Dictated Date/Time: 11/29/2017 12:20 PM Laboratory Results 11/29/17 12:25 Red Blood Count 4.37, Mean Corpuscular Volume 91.5, Mean Corpuscular Hemoglobin 30.0, Mean Corpuscular Hemoglobin Concent 32.8, Mean Platelet Volume 10.5, Neutrophils (%) (Auto) 62.3, Lymphocytes (%) (Auto) 22.5, Monocytes (%) (Auto) 9.8, Eosinophils (%) (Auto) 3.9, Basophils (%) (Auto) 1.2, Neutrophils # (Auto) 4.02, Lymphocytes # (Auto) 1.45, Monocytes # (Auto) 0.63, Eosinophils # (Auto) 0.25, Basophils # (Auto) 0.08 11/29/17 12:25 Test 11/29/17 12:25 11/29/17 13:28 White Blood Count 6.45 K/uL (4.8-10.8) Red Blood Count 4.37 M/uL (4.2-5.4) Hemoglobin 13.1 g/dL (12.0-16.0) Hematocrit 40.0 % (37-47) Mean Corpuscular Volume 91.5 fL (80-100) Mean Corpuscular Hemoglobin 30.0 pg (25-34) Mean Corpuscular Hemoglobin Concent 32.8 g/dl (32-36) Platelet Count 201 K/uL (130-400) Mean Platelet Volume 10.5 fL (7.4-10.4) Neutrophils (%) (Auto) 62.3 % Lymphocytes (%) (Auto) 22.5 % Monocytes (%) (Auto) 9.8 % Eosinophils (%) (Auto) 3.9 % Basophils (%) (Auto) 1.2 % Neutrophils # (Auto) 4.02 K/uL (1.4-6.5) Lymphocytes # (Auto) 1.45 K/uL (1.2-3.4) Monocytes # (Auto) 0.63 K/uL (0.11-0.59) Eosinophils # (Auto) 0.25 K/uL (0-0.5) Basophils # (Auto) 0.08 K/uL (0-0.2) RDW Standard Deviation 48.2 fL (36.4-46.3) RDW Coefficient of Variation 14.4 % (11.5-14.5) Immature Granulocyte % (Auto) 0.3 % Immature Granulocyte # (Auto) 0.02 K/uL (0.00-0.02) Anion Gap 4.0 mmol/L (3-11) Est Creatinine Clear Calc Drug Dose 42.5 ml/min Estimated GFR () 70.9 Estimated GFR (Non- 61.2 BUN/Creatinine Ratio 16.8 (10-20) Calcium Level 8.8 mg/dl (8.5-10.1) Urine Color YELLOW Urine Appearance CLEAR (CLEAR) Urine pH 8.5 (4.5-7.5) Urine Specific [place] 1.013 (1.000-1.030) Urine Protein NEG (NEG) Urine Glucose (UA) NEG (NEG) Urine Ketones NEG (NEG) Urine Occult Blood NEG (NEG) Urine Nitrite NEG (NEG) Urine Bilirubin NEG (NEG) Urine Urobilinogen NEG (NEG) Urine Leukocyte Esterase NEG (NEG) Laboratory results reviewed by me ECG Indication: other (fall ) Rate (beats per minute): 78 Rhythm: normal sinus Findings: no acute ischemic change, other (normal axis) ED Course 1156: The patient was evaluated in room C9. A complete history and physical exam was performed. Medical Decision I reviewed the patient's past medical history, medications, and the nursing notes as described above. Differential diagnosis: Etiologies such as fracture, dislocation, intra-abdominal, pneumothorax, intrathoracic , intracranial, neurologic, as well as other traumatic pathologies were entertained. The patient is an 87-year-old woman with a past medical history of dementia who presents emergency department from her senior living facility after having a mechanical fall onto her face per hpi. Arrival the patient is in no acute distress, afebrile with stable vital signs. She has some mild swelling and contusion to the bridge to her nose. Otherwise denies any pain. CTL-spine without any tenderness or step-offs. CT of the head, face, C-spine and chest x- ray and pelvic x-ray negative for fractures. Labs unremarkable including WBC within normal limits. UA negative. Patient is feeling well and requesting discharge back to her facility. Findings and plan for follow-up reviewed with patient. Patient agreeable and d/c'd per discharge instructions. Medication Reconcilliation Current Medication List: was personally reviewed by me Blood Pressure Screening Patient's blood pressure: Normal blood pressure Blood pressure disposition: Did not require urgent referral Impression Primary Impression: Contusion of nose Additional Impression: Fall Scribe Attestation The scribe's documentation has been prepared under my direction and personally reviewed by me in its entirety. I confirm that the note above accurately reflects all work, treatment, procedures, and medical decision making performed by me. Departure Information Dispostion Home / Self-Care Referrals Odilia Pardo, C.R.N.P. (PCP) Patient Instructions Bruises Contusions, ED Mechanical Fall, [facility] Additional Instructions Please follow up with your primary care physician in the next 1-3 days for re- evaluation. Your exam, EKG, xrays, CT scans, and lab results did not show signs of an emergent condition at this time. Acetaminophen for pain as needed. Return to the emergency department for worsening symptoms as described in the accompanying instructions. Problem Qualifiers
[2017-11-29 12:08] VITALS: TEMP 36.8; O2SAT 99; Ht 157.5 cm; Wt 68.1 kg
--- NOTE | 2017-11-29 12:23 | DIAGNOSTIC IMAGING REPORT ---
SINGLE VIEW CHEST CLINICAL HISTORY: Generalized abdominal pain. FINDINGS: An AP, portable, upright chest radiograph is compared to study dated 12/24/2016 and correlated with chest CT dated 12/29/16. The examination is degraded by portable technique and patient rotation. The heart is enlarged and there is atherosclerotic calcification of the thoracic aorta. The pulmonary vasculature is noncongested. Chronic interstitial thickening is similar to previous. There are bibasilar airspace opacities. No large pleural effusion or pneumothorax is seen. The skeletal structures are osteopenic. The bony thorax is grossly intact. IMPRESSION: 1. Cardiomegaly without radiographic evidence of congestive failure. 2. There are bibasilar airspace opacities, likely representing atelectasis. Clinical correlation will be required. Electronically signed by: Ishan Gonzalez M.D. 11/29/2017 12:21 PM Dictated Date/Time: 11/29/2017 12:20 PM
--- NOTE | 2017-11-29 12:23 | DIAGNOSTIC IMAGING REPORT ---
PELVIS 1 OR 2 VIEW ROUTINE CLINICAL HISTORY: pain fall trauma. Pain. COMPARISON: None. DISCUSSION: The bones and joint spaces appear intact. There is no evidence of fracture, dislocation or bony disease. There is no evidence for soft tissue swelling. IMPRESSION: Negative study. The above report was generated using voice recognition software. It may contain grammatical, syntax or spelling errors. Electronically signed by: Alphonso Newby M.D. 11/29/2017 12:21 PM Dictated Date/Time: 11/29/2017 12:21 PM
[2017-11-29 12:42] LABS: BASO % 1.2 %; BASO ABS # 0.08 K/uL (0-0.2); EOS % 3.9 %; EOS ABS # 0.25 K/uL (0-0.5); HEMOGLOBIN 13.1 g/dL (12.0-16.0); IG# 0.02 K/uL (0.00-0.02); LYMPH % 22.5 %; LYMPH ABS # 1.45 K/uL (1.2-3.4); MEAN CELL VOLUME 91.5 fL (80-100); MEAN CORPUSCULAR HGB CONC 32.8 g/dl (32-36); MEAN PLATELET VOLUME 10.5 fL (7.4-10.4); MONO % 9.8 %; MONO ABS # 0.63 K/uL (0.11-0.59); NEUT % 62.3 %; NEUT ABS # 4.02 K/uL (1.4-6.5); PLATELET COUNT 201 K/uL (130-400); RED CELL DISTRIBUTION WIDTH CV 14.4 % (11.5-14.5); RED CELL DISTRIBUTION WIDTH SD 48.2 fL (36.4-46.3); WHITE BLOOD COUNT 6.45 K/uL (4.8-10.8)
--- NOTE | 2017-11-29 12:57 | DIAGNOSTIC IMAGING REPORT ---
CT SCAN OF THE BRAIN WITHOUT IV CONTRAST CLINICAL HISTORY: Fall. Headache. COMPARISON STUDY: CT of the brain dated 12/24/2016. TECHNIQUE: Unenhanced axial CT scan of the brain is performed from the vertex to the skull base. A dose lowering technique was utilized adhering to the principles of ALARA. CT DOSE: 638.56 mGycm FINDINGS: Brain parenchyma: There are age-related involutional changes noting mild subcortical and periventricular microangiopathic change. There is no hemorrhage, mass effect, or evidence of acute territorial ischemia by CT criteria. Banks-white matter is preserved. No extra-axial fluid collection is seen. Ventricles, sulci, cisterns: Prominent secondary to involutional change. Intracranial vasculature: There is atherosclerotic calcification of the cavernous carotid arteries. Calvarium: The Skeletal structures are osteopenic. No depressed calvarial fracture is seen. Sinuses and mastoids: The visualized paranasal sinuses are clear. The mastoid air cells are well pneumatized. Orbits: The bony orbits are grossly intact. IMPRESSION: There is no hemorrhage, mass effect, or evidence of acute territorial ischemia by CT criteria. Electronically signed by: Ishan Gonzalez M.D. 11/29/2017 12:55 PM Dictated Date/Time: 11/29/2017 12:53 PM
[2017-11-29 13:00] LABS: CALCIUM 8.8 mg/dl (8.5-10.1); CREATININE 0.86 mg/dl (0.60-1.20); POTASSIUM 3.7 mmol/L (3.5-5.1)
--- NOTE | 2017-11-29 13:09 | DIAGNOSTIC IMAGING REPORT ---
CT SCAN OF THE CERVICAL SPINE CLINICAL HISTORY: Fall. Neck pain. COMPARISON STUDY: No priors. TECHNIQUE: CT scan of the cervical spine is performed from the skull base to the upper thoracic spine. Images are reviewed in the axial, sagittal, and coronal planes. IV contrast was not administered for this examination. A dose lowering technique was utilized adhering to the principles of ALARA. CT DOSE: 472.31 mGycm FINDINGS: Skeletal structures: The skeletal structures are osteopenic. There is no evidence of fracture or subluxation involving the cervical spine. Vertebral body height is maintained. There is no anterolisthesis at C3-C4. Alignment is otherwise preserved. There is straightening of the cervical lordosis. The odontoid process and lateral masses are intact. The atlantoaxial articulation is preserved noting advanced productive degenerative change. Cystic degenerative changes seen at the base of the dens. Tiny anterior osteophytes are seen throughout. The spinous processes appear intact. Advanced an plate sclerosis is seen at C5-C6 and C6-C7. There is moderate multilevel cervical spondylosis. Uncovertebral and facet arthropathy contribute sterile foraminal stenosis at several levels. Intervertebral discs: There is advanced disc space narrowing seen at C4-C5, C5-C6, and C6-C7. Mild disc space narrowing is seen at the remaining cervical levels. Central canal: Widely patent. Soft tissues: The prevertebral and paraspinous soft tissues are within normal limits. Numerous calcified tonsilliths are observed. Calvarium: The visualized calvarium at the skull base appears intact. Brain parenchyma: Partially visualized brain parenchyma the skull base is within normal limits. Sinuses and mastoids: The visualized paranasal sinuses are clear. The mastoid air cells are well pneumatized. Lung apices: Clear as visualized noting mild apical scarring. IMPRESSION: 1. There is no evidence of fracture or subluxation involving the cervical spine. 2. Osteopenia and spondylotic change as above. Electronically signed by: Ishan Gonzalez M.D. 11/29/2017 1:08 PM Dictated Date/Time: 11/29/2017 12:58 PM
--- NOTE | 2017-11-29 13:10 | DIAGNOSTIC IMAGING REPORT ---
FACIAL BONES-MXILLOFAC WITHOUT CLINICAL HISTORY: 87 years-old Female presenting with pain fall. TECHNIQUE: Multidetector CT of the face was performed without the use of intravenous contrast. IV contrast: None. A dose lowering technique was used consistent with the principles of ALARA (as low as reasonably achievable). COMPARISON: CT head from 12/24/2016. CT DOSE (mGy.cm): The estimated cumulative dose is 542.52 mGycm. FINDINGS: Pricing Specialist topogram: Unremarkable. Minimal mucosal thickening in anterior ethmoid air cells. Remainder of paranasal sinuses and mastoid air cells clear. Leftward bony nasal septal deviation with bony spurring and bridging on the left resulting in narrowing of the left aspect of the nasal cavity. Orbits intact. Amalgam slightly limits evaluation of the oral cavity. Within the limitation, the mandible is intact. No significant periapical lucency. Skull base intact. Limited intracranial evaluation demonstrates likely age-related parenchymal volume loss. Possible chronic small vessel ischemic change in the subcortical and periventricular white matter. Superficial soft tissues of the face demonstrate possible minimal subcutaneous infiltration immediately inferior to the right premaxillary region. No hematoma. No deep soft tissue abnormality within limitations of noncontrast technique. Degenerative changes of the spine with focal well-defined lucent lesions noted at several levels, indeterminate but possibly cystic change related to degenerative joint/disc disease. IMPRESSION: 1. No acute osseous injury of the face. 2. Possible minimal contusion in the subcutaneous soft tissues immediately inferior to the right premaxillary region. No hematoma or other evidence of soft tissue injury. 3. Well-defined lucent lesions noted at several vertebral body levels, indeterminate but possibly cystic change related to degenerative joint/disc disease. Electronically signed by: Royal Garcia M.D. 11/29/2017 1:09 PM Dictated Date/Time: 11/29/2017 1:04 PM
[2017-11-29 13:49] VITALS: BP 135/76; PULSE 67
[2017-11-29] MEDS ORDERED: SKINCRE34 TOP (14:03)
[2017-11-29] MEDS ORDERED: HYDCR25 TOP (14:03)
[2017-11-29] MEDS ORDERED: PSEU60TA80 PO (14:03)
[2017-11-29] MEDS ORDERED: CLOTCRE TOP (14:03)
[2017-11-29] MEDS ORDERED: CETI10TA84 PO (14:03)
[2017-11-29] MEDS ORDERED: SALI0.6510 NAE (14:03)
[2017-11-29] MEDS ORDERED: QUET1TAB30 PO (14:03)
[2017-11-29] MEDS ORDERED: DEXT1TAB50 PO (14:03)
== END 2017-11-29 14:12 ==
LOC: EDBD 11:46 → C.EDC 11:48
DX: S00.33XA Contusion of nose, initial encounter (principal); W18.39XA Other fall on same level, initial encounter; G30.9 Alzheimer's disease, unspecified; F02.80 Dementia in other diseases classified elsewhere, unspecified severity, without behavioral disturbance, psychotic disturbance, mood disturbance, and anxiety; E78.5 Hyperlipidemia, unspecified; I10 Essential (primary) hypertension; M81.0 Age-related osteoporosis without current pathological fracture; Z79.82 Long term (current) use of aspirin; Z80.3 Family history of malignant neoplasm of breast; Z80.0 Family history of malignant neoplasm of digestive organs; Z82.3 Family history of stroke

== ENCOUNTER 2019-09-10 17:05 | Inpatient (IN) ==
[2019-09-10] MEDS ORDERED: haloperidoL 5 MG TAB PO STA (17:14)
[2019-09-10] MEDS ORDERED: SODIUM CHLORIDE 0.9% 500 ML IV SCH (17:15)
[2019-09-10] MEDS ORDERED: LORazepam 2 MG/ML VIAL (IM USE) IM STA (17:40)
[2019-09-10] MEDS ORDERED: HALOPERIDOL LACTATE 5 MG/ML 1 ML VIAL IM STA (17:40)
[2019-09-10 18:48] LABS: Basophils # (auto) 0.04 K/uL (0-0.2); Basophils % (auto) 0.6 %; Eosinophils # (auto) 0.25 K/uL (0-0.5); Eosinophils % (auto) 3.6 %; Hematocrit (blood only) 33.3 % (37-47); Hemoglobin 11.1 g/dL (12.0-16.0); Immature Granulocytes # (auto) 0.02 K/uL (0.00-0.02); Immature Granulocytes % (auto) 0.3 %; Lymphocytes # (auto) 1.48 K/uL (1.2-3.4); Lymphocytes % (auto) 21.6 %; Mean Corpuscular Hemoglobin 28.2 pg (25-34); Mean Corpuscular Hgb Conc 33.3 g/dL (32-36); Mean Corpuscular Volume 84.7 fL (80-100); Mean Platelet Volume 11.9 fL (7.4-10.4); Monocytes # (auto) 0.81 K/uL (0.11-0.59); Monocytes % (auto) 11.8 %; Neutrophils # (auto) 4.25 K/uL (1.4-6.5); Neutrophils % (auto) 62.1 %; Platelet Count 200 K/uL (130-400); RDW Coefficient of Variation 15.3 % (11.5-14.5); RDW Standard Deviation 46.5 fL (36.4-46.3); Red Blood Count 3.93 M/uL (4.2-5.4); White Blood Count 6.85 K/uL (4.8-10.8)
[2019-09-10 19:06] LABS: Alanine Aminotransferase 16 U/L (12-78); Aspartate Aminotransferase 26 U/L (15-37); BUN Creatinine Ratio 24.6 (10-20); Blood Urea Nitrogen 16 mg/dl (7-18); Calcium 8.9 mg/dl (8.5-10.1); Carbon Dioxide 24 mmol/L (21-32); Chloride 109 mmol/L (98-107); Est GFR (African American) 91.4; Est GFR (Non-African American) 78.9; Glucose 89 mg/dl (70-99); Potassium 3.7 mmol/L (3.5-5.1); Sodium 139 mmol/L (136-145)
[2019-09-10 19:16] LABS: Albumin Globulin Ratio 0.9 (0.9-2); Alkaline Phosphatase 66 U/L (45-117); Bilirubin,Total 0.3 mg/dl (0.2-1); Creatine Kinase 160 U/L (26-192); Globulin 3.5 gm/dl (2.5-4.0); Total Protein 6.5 gm/dl (6.4-8.2); Troponin I < 0.015 ng/ml (0-0.045)
--- NOTE | 2019-09-10 19:37 | XRay Report ---
XR chest 1V portable CLINICAL HISTORY: weakness mental status change COMPARISON STUDY: 08/07/2019 FINDINGS: Mild cardiomegaly. Slight chronic blunting left lateral costophrenic angle. Lungs otherwise appear clear. IMPRESSION: 1. Moderate cardiomegaly. 2. Otherwise negative study. 3. Chronic blunting left/left lateral costophrenic angle. The above report was generated using voice recognition software. It may contain grammatical, syntax or spelling errors. Electronically signed by: Alphonso Newby M.D. 09/10/2019 7:36 PM
[2019-09-10 19:38] LABS: Hepatitis B Surface Antigen Neg (Neg)
--- NOTE | 2019-09-10 19:46 | CT Scan Report ---
CT head/brain wo con CT DOSE: 537.48 mGy.cm HISTORY: Mental status change Pt c/o AMS TECHNIQUE: Multiaxial CT images of the head were performed without the use of intravenous contrast. A dose lowering technique was utilized adhering to the principles of ALARA. Comparison: 08/07/2019 Findings: The paranasal sinuses and mastoid air cells are clear. The calvarium and skull base are int act. The ventricles and sulci are within normal limits. There is no mass, hematoma, midline shift, or acute infarct. Age-related changes present Impression: No acute intracranial abnormality. The above report was generated using voice recognition software. It may contain grammatical, syntax or spelling errors. Electronically signed by: Alphonso Newby M.D. 09/10/2019 7:45 PM
[2019-09-10 19:58] LABS: Appearance Urine Clear (Clear); Bacteria Urine Automated Negative (Negative); Bilirubin Urine Negative (Negative); Blood Urine Negative (Negative); Color Urine Yellow; Epithelial Cell Urine Auto >30 /lpf (0-5); Glucose Urine UA Negative (Negative); Ketones Urine Trace (Negative); Leukocyte Esterase Urine 1+ (Negative); Nitrite Urine Negative (Negative); Protein Urine Trace (Negative); RBC Urine Automated 0-4 /hpf (0-4); Specific Gravity Urine 1.019 (1.000-1.030); Urobilinogen Urine Negative (Negative); WBC Urine Automated >30 /hpf (0-5)
[2019-09-10 20:07] LABS: Hepatitis C IgG 13Yrs+Old_Rflx Neg (Neg)
[2019-09-10] MEDS ORDERED: cefTRIAXone SODIUM 250 MG/ML IM IM ONE (20:14)
[2019-09-10 20:16] LABS: Amphetamines+Metham, Urine Neg (Neg); Barbiturates, Urine Neg (Neg); Benzodiazepine, Urine Neg (Neg); Cocaine, Urine Neg (Neg); MDMA (Ecstacy), Urine Neg (Neg); Methadone, Urine Neg (Neg); Opiate, Urine Neg (Neg); Phencyclidine, Urine Neg (Neg)
[2019-09-10 21:00] LABS: Mucus Urine Present (None Prsent)
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
[2019-09-11] MEDS ORDERED: ONDANSETRON INJ 2 MG/ML 2 ML VIAL IV PRN (03:11)
[2019-09-11] MEDS ORDERED: TRAZODONE HCL 50 MG TAB PO PRN (03:11)
[2019-09-11] MEDS ORDERED: OLANZapine 10 MG/2.1 ML SDV IM PRN (03:11)
[2019-09-11] MEDS ORDERED: HYDROCORTISONE ACETATE 25 MG SUPP PR PRN (03:11)
[2019-09-11] MEDS ORDERED: ACETAMINOPHEN 325 MG TAB PO PRN (03:11)
[2019-09-11] MEDS ORDERED: NON-FORMULARY MEDICATION (Lidocaine 1 APPLN) TOP PRN (03:11)
[2019-09-11] MEDS ORDERED: ARTIFICIAL TEARS OP PRN (03:11)
[2019-09-11] MEDS ORDERED: INFLUENZA VACCINE HIGH DOSE 65+ 0.5 ML SYR IM ONE (04:30)
[2019-09-11] MEDS ORDERED: INFLUENZA ADMINISTRATION CHARGE ONE (04:30)
[2019-09-11] MEDS ORDERED: PNEUMOCOCCAL POLYSACCHARIDES 25 MCG/0.5 ML VIAL/SYR IM ONE (04:30)
[2019-09-11] MEDS ORDERED: PNEUMOCOCCAL ADMINISTRATION CHARGE ONE (04:30)
--- NOTE | 2019-09-11 04:45 | History and Physical Report ---
DATE OF ADMISSION: 09/11/2019 CHIEF COMPLAINT: Agitation. HISTORY OF PRESENT ILLNESS: This 89-year-old female with past medical history significant for hyperlipidemia, hypertension, osteoporosis, uterine prolapse, dementia, currently at [facility] for last 2 years, was brought in because of confusion and agitation. The patient was here in July with the same problem and she was sent to [facility] and her medications were adjusted and she was sent back to [facility]. She came on September 08 in the evening to the ER and there was again planned for a placement but difficult to place and she was sent back to [facility] in the morning with Keflex because she has UTI, urine culture growing alpha strep, not enterococcus. As per [facility] staff, she was hitting the other residents and getting agitated. She was sent back here and she received 5 mg of IM Haldol and 1 mg of IM Ativan and she is currently somewhat calm and sedated, could not get any history from the patient.Talked to her [id number]. As per [id number], since 2 years, she is in [facility] Dementia Unit. Prior to that, she was in assisted living for 3 months, but she was getting confused, wandering and she keeps on walking, and even at the [facility], she is getting on and off agitated for the last 2 years.Anytime any change in medication change or any new environment she gets confusion and agitated. The patient is DNR as per nursing staff. No recent fever, chills. No nausea, vomiting. No diarrhea. No other complaints. The patient ambulates without a.ny help. She is eating okay and fine.As per daughter in law patient only recognizes her daughter ALLERGIES: ERYTHROMYCIN, PENICILLIN, PRAVASTATIN. PAST MEDICAL HISTORY: As mentioned above. PAST SURGICAL HISTORY: Unobtainable at this time. MEDICATIONS: The patient is on Tylenol 650 mg p.o. q. 4 hours p.r.n., aspirin 81 mg p.o. daily, cephalexin 500 mg p.o. b.i.d., Depakote sprinkles 250 mg p.o. b.i.d., artificial tears b.i.d. p.r.n., Colace 100 mg p.o. daily, Anusol-HC 25 mg p.o. daily p.r.n., ibuprofen 400 mg p.o. q. 6 hours p.r.n., lidocaine topical 24 hours p.r.n., olanzapine 2.5 mg p.o. daily, olanzapine 5 mg p.o. b.i.d., sertraline 25 mg p.o. daily, trazodone 25 mg p.o. at bedtime p.r.n. FAMILY HISTORY: Significant for: Brother had esophageal cancer. Father had stroke. Maternal grandmother had breast cancer. SOCIAL HISTORY: Currently living at [facility]. No smoking, no alcohol, no drug use as per records. REVIEW OF SYMPTOMS: Unobtainable at this time. PHYSICAL EXAMINATION: GENERAL: The patient is currently sedated, old and frail. VITAL SIGNS: Temperature 37, pulse 79, respiratory rate 14, blood pressure 130/78, oxygen 96% room air. HEENT: Eyes no pallor. Head is atraumatic. NECK: No JVD, no neck masses. CARDIOVASCULAR: S1, S2 heard, regular rate and rhythm, no murmur, no gallop. RESPIRATORY SYSTEM: Normal AP diameter. No accessory muscle use. No wheezing, no crackles. ABDOMEN: Soft, bowel sounds present. No distention. CENTRAL NERVOUS SYSTEM: Currently sleepy. Moves extremities. EXTREMITIES: No edema, no erythema. LABORATORY DATA: WBC 6.8, hemoglobin 11.1, hematocrit 33.3, platelets 200. Sodium 110, potassium 3.7, chloride 109, bicarbonate 24, BUN 16, creatinine 0.6, serum glucose 89, calcium 8.9, total bilirubin 0.3, AST 26, ALT 16, alkaline phosphatase 66, total creatinine kinase 160. Troponin I less than 0.015. TSH 1.07. Urinalysis positive for leukocyte esterase. Urine drug screen negative. Ethyl alcohol negative. Hepatitis B surface antigen negative. HIV A and B negative. Hepatitis C antibody negative. IMAGING DATA: CT of the head, no acute findings. Chest x-ray, no acute findings. EKG: Sinus bradycardia, rate of 53, no acute ST changes seen. ASSESSMENT AND PLAN: This is an 89-year-old female who presents with agitation. 1. Agitation, confusion, history of dementia, on and off agitation for the last 2 years since in [facility]. She also has urinary tract infection, probably urinary tract infection contributing to the current agitation, cultures drawn yesterday showed alpha strep, not enterococcus. Continue with IV Rocephin. Follow the urine cultures. She was recently in July had similar episode and she was transferred to [facility] from the ER. Currently in the ER, was tried to place her, but could not and sent her back to [facility] yesterday. Comes back again with agitation. We will consult psych to help with any change in additional medication or placement. Monitor in the medical floor. 2. History of dementia with behavioral change. Continue her home medication of olanzapine, Zoloft and Depakote. We will place her on IM Zyprexa p.r.n. 3. Deep venous thrombosis prophylaxis, heparin subcutaneously. 4. Disposition: Admit to medical floor. May need placement. Social Service to help with discharge planning. Code status: DNR as per my discussion with Ariana roca and also with her [id number]. MTDD
[2019-09-11] MEDS: DOCUSATE SODIUM 100 MG CAP PO SCH (08:25)
[2019-09-11] MEDS: ASPIRIN 81 MG ECTAB PO SCH (08:25)
[2019-09-11] MEDS: DIVALPROEX SODIUM SPRINKLE 125 MG CAP PO SCH ×2 (08:25→20:21)
[2019-09-11] MEDS: SERTRALINE HCL 50 MG TABLET PO SCH (08:25)
[2019-09-11] MEDS: OLANZapine 5 MG TABLET PO SCH ×2 (08:26→20:21)
[2019-09-11] MEDS: HEPARIN SOD 5,000 UNIT/0.5 ML VIAL SQ SCH ×2 (09:54→20:26)
--- NOTE | 2019-09-11 11:39 | Psychiatric Consultation ---
Date of Consultation September 11, 2019 Impression / Recommendations Impression 89-year-old female admitted medically on 09/11/19 due to confusion and agitation. Patient has a long history of dementia, and has been residing at [facility] dementia unit for the past 2 years. She presents on this admission with a UTI and was admitted medically for treatment. Psychiatric consultation was requested due to reports of agitation and hitting other clients while at the dementia unit. In July, present patient presented for similar behavior, and was treated at [facility] and was sent back to [facility] after receiving medication adjustments. Patient presented again on September 08, again found to have a UTI, and was sent back to [facility] due to placement difficulties. Of course, it is recommended that her UTI be treated to reduce some level of confusion and agitation. Patient has been taking Zyprexa 5/2.5/5 mg 3 times daily to manage agitation. She has Zyprexa 2.5 mg IM injections available as needed. Would recommend having these options available orally as well, that can be utilized to treat agitation before if it becomes a safety risk to patient or staff. Would recommend utilizing Zyprexa Zydis 2.5 mg every 6 hours as needed agitation. Family should be reminded of increased risk of mortality associated with use of atypical antipsychotics in the elderly population. Fortunately, patient's QTc was most recently 394. Based on patient's need for as needed dosing of Zyprexa, can then determine if increase schedule dosing would be appropriate. It would be reasonable to dose 5 mg of Zyprexa 3 times daily scheduled to manage behavior. Psychiatric nurse liaison to reach out to patient's daughter who is reportedly POA in order to gather collateral information and request records from her stay at [facility]. In order to effectively manage behavior related to dementia, it is recommended that behavioral techniques are utilized to improve patient's comfort level and reduce stress during this hospitalization. It would be recommended that patient be frequently re-oriented to person, place, time, event, and intervention to be performed. Permitted may be permitted to have familiar visitors throughout the day, have familiar items in their room. It is also recommended that corrective lenses and assistive hearing devices be utilized as appropriate. Patient should be kept awake and active during the day, with lights on in room and with does open. In order to prevent disruption of sleep/wake cycle, it is recommended the patient be encouraged to rest only in the evenings in a dark room with the blinds closed. PRN medication can be utilized to manage agitation as needed to prevent harm to patient or staff. Appropriate utilization of this medication can allow for improvement of behaviors, as well as providing idea of necessary insight into beneficial adjustments to schedule dosing. Patient's symptoms of agitated behavior are best explained by a diagnosis of dementia, and not an underlying psychiatric disorder. Inpatient psychiatric admission is not indicated, and goal should be for patient to return to the locked dementia unit at [facility]. Dr. Keily Fong was directly involved in review and discussion of the patient's case and participated in medical decision making regarding treatment recommendations. PLAN: 09/11 - Continue olanzapine 5mg/2.5mg/5mg scheduled dosing; consider if 5mg TID dosing would be more appropriate during UTI treatment based on behavior displayed in hospital - Olanzapine 2.5mg PO q6h prn would be beneficial in order to manage agitated behavior without requiring immediate use of injection; Consider Zyprexa Zydis for ODT formulation - Will be able to make recommendations for adjustments of scheduled dosing based on utilization of prn medication - please provide medication when behavior warrants - Behavioral interventions to increase comfort and reduce anxiety as outlined above - Agitation is most likely a result of dementia and not a primary psychiatric diagnosis; inpatient psychiatric admission would therefore not be indicated - Goal of treatment should be for return to a locked dementia unit when medically cleared CPT Code Initial Consultation: 53360 Psych History Identifying Data 89-year-old female admitted medically on 09/11/19 due to confusion and agitation. Patient has a long history of dementia, and has been residing at [facility] for the past 2 years. She presents on this admission with a UTI and was admitted medically for treatment. Psychiatric consultation was requested due to reports of agitation and hitting other clients while at the dementia unit. Patient is unable to provide history of her own, therefore information below was obtained from hospital documentation. Chief Complaint "We have to go up. Isn't that were they brought those things from?" History of Present Illness 89-year-old female admitted medically on 09/11/19 due to confusion and agitatio n. Patient has a long history of dementia, and has been residing at [facility] for the past 2 years. She presents on this admission with a UTI and was admitted medically for treatment. Psychiatric consultation was requested due to reports of agitation and hitting other clients while at the dementia unit. PMH includes HLD, HTN, osteoporosis, and dementia. Pt has been presented to the ED multiple times in the last month for confusion and agitation. She has been found to have UTIs and has been treated for these. It is reported that she was admitted to [facility] in 07/2019 for psychiatric treatment and received medication adjustments at that time. Pt is admitted again with evidence of UTI and reports of agitated behavior at [facility], where it is reported she has been hitting other residents. It is reported that the patient is currently prescribed Zyprexa three times daily at 5mg/2.5mg/5mg dosing. She is also prescribed Depakote 250mg BID. Pt was observed to be walking the halls with her CLINICAL COUNSELOR at time of this provider's arrival. Pt was offered to return to room to discuss more, but resisted stepping through the threshold of the doorway. This provider, accompanied by the CLINICAL COUNSELOR walked with the patient for several laps. This provider attempted to ask the patient questions, which she was largely unable to answer appropriately. Pt does state she is "good", but otherwise verbalized tangential statements about going upstairs and buying this provider a "large metal structure." Pt often did not even respond to this provider's questions with unrelated verbal responses and was often focused on walking her laps. She did demonstrate some mood lability, at times pulling on provider's hands to head in a certain direction and becoming mildly upset when she was encouraged to keep walking circles. At one point, patient did wave her pointed finger in front of the CLINICAL COUNSELOR's face, but did not threaten to hit or touch her directly. She did fidget with the blankets on her bed briefly and then returned to walking laps. Pt states "yes" when asked if she would appreciate some additional activities such as coloring pages or blankets/towels to fold. She was unable to provide any other meaningful information at this time. Past Psychiatric History Previous Psych History: Prior psychiatric history is largely unknown - attempting to gather collateral from daughter. Pt was reportedly admitted to [facility] geriatric psychiatry unit in 07/2019 for similar behavior. Past Medication Trials: Current medication regimen includes: 1. Zyprexa 2. Depakote Allergies Allergy/AdvReac Type Severity Reaction Status Date / Time erythromycin base Allergy Severe unknown Verified 09/08/19 18:13 pravastatin Allergy Severe unknown Verified 09/08/19 18:13 Penicillins Allergy Intermediate HIVES Verified 09/08/19 18:13 Home Medications Home Medications Medication Instructions Recorded Confirmed Type acetaminophen [Tylenol] 650 mg PO Q4H PRN 05/07/19 09/08/19 History aspirin 81 mg PO DAILY 05/07/19 09/08/19 History dextran 70-hypromellose 1 drp OPHTHALMIC (EYE) BID PRN 05/07/19 09/08/19 History [Artificial Tears (PF)] lidocaine 1 applic TOPICAL Q24H PRN 05/07/19 09/08/19 History hydrocortisone acetate [Anusol-HC] 25 mg MN DAILY PRN 08/07/19 09/08/19 History ibuprofen 400 mg PO Q6H PRN 08/07/19 09/08/19 History Depakote Sprinkles 250 mg PO BID 09/08/19 09/08/19 History cephalexin 500 mg PO BID 7 Days #14 cap 09/08/19 Rx docusate sodium [Colace] 100 mg PO DAILY 09/08/19 09/08/19 History olanzapine 2.5 mg PO DAILY 09/08/19 09/08/19 History olanzapine [Zyprexa] 5 mg PO BID 09/08/19 09/08/19 History sertraline 25 mg PO DAILY 09/08/19 09/08/19 History trazodone 25 mg PO HS PRN 09/08/19 09/08/19 History Family History Pt unable to provide additional history Substance Abuse History Pt unable to provide additional history Personal History Living Arrangements: [facility]) Patient History Medical History Dyslipidemia (Chronic) Hypertension (Chronic) Osteoporosis (Chronic) Uterine prolapse (Chronic) "s/p repair" Brain bleed Dementia UTI (urinary tract infection) Family History Other Family history non-contributory Social History Preferred Language: Irish [employer] Required: No Current Living Situation: [facility] Current Living Situation Comment: [facility] unit Feels Safe at Home: Yes Smoking Status: Unknown if ever smoked Physical Exam Psychiatric: Orientation: alert and cooperative (superficially, walking halls w/ CLINICAL COUNSELOR-some demonstration of verbal agitation); + not oriented x 3 Apperance: appropriately dressed (for situation/setting; wearing paper scrubs), appropriat arianne groomed and appeared stated age Petite elderly female observed to be walking halls in no acute distress. Shoulder-length zhu hair appears clean and well-groomed. Hygiene is likely adequate, not malodorous. Eye Contact: + fair eye contact (moments of direct eye contract) Motor Behavior: steady gait and station (walking with minimum assistance) and no abnormal motor movements Speech is soft, brief phrases are muttered Affect: + labile affect moments of pleasant behavior, at times is mildly agitated (pointing finger, pulling hands of this provider and CLINICAL COUNSELOR); at times she is verbally agitated with voice becoming louder and demonstrating a more irritable affect Pt unable to comment on present mood Thought Process: + tangential thought process, + looseness of associations and thought association intact; + thought process not goal directed and + thought process not linear or logical Unable to fully assess given disorganized thought process and limited participation in conversation Cognition: + recent memory not intact, + remote memory not intact, + attention not intact and + language not intact Insight: + severely impaired insight Judgement: + severely impaired judgement Vital Signs (Past 24 Hours): Last Vital Signs Temp 36.4 C L 09/11/19 07:18 Pulse 96 H 09/11/19 07:18 Resp 18 09/11/19 07:18 BP 117/66 09/11/19 07:18 Pulse Ox 96 09/11/19 07:18 Review of Systems Patient is unable to participate in review of systems due to level of disorganization and inability to participate in conversation. Results & Data Medications Administered Aspirin (Ecotrin Ectab) 81 mg PO DAILY [facility] Stop: 10/11/19 08:59 Last Admin: 09/11/19 08:25 Dose: 81 mg Documented by: [id number] Divalproex Sodium (Depakote Sprinkle) 250 mg PO BID [facility] Stop: 10/11/19 08:59 Last Admin: 09/11/19 08:25 Dose: 250 mg Documented by: [id number] Docusate Sodium (Colace) 100 mg PO DAILY [facility] Stop: 10/11/19 08:59 Last Admin: 09/11/19 08:25 Dose: 100 mg Documented by: [id number] Heparin Sodium (Porcine) (Heparin Sodium (Porcine)) 5,000 units SQ Q12 [facility] Stop: 10/11/19 08:59 Last Admin: 09/11/19 09:54 Dose: Not Given Documented by: [id number] Olanzapine (Zyprexa) 5 mg PO BID [facility] Stop: 10/11/19 08:59 Last Admin: 09/11/19 08:26 Dose: 5 mg Documented by: [id number] Sertraline HCl (Zoloft) 25 mg PO DAILY [facility] Stop: 10/11/19 08:59 Last Admin: 09/11/19 08:25 Dose: 25 mg Documented by: [id number] Coding Level of Care Code 33278 U Intl Hosp Care Lvl 1
[2019-09-11] MEDS ORDERED: cefTRIAXone SODIUM 1,000 MG in DEXTROSE 5% 50 ML IV SCH (12:00)
[2019-09-11] MEDS: OLANZAPINE 2.5 MG TAB PO SCH (12:25)
--- NOTE | 2019-09-11 13:45 | Hospitalist Progress Note ---
Date of Service September 11, 2019 Assessment & Plan (1) Dementia: Baseline advanced dementia behavioral disturbance, psychosis History of long-term dementia, at present resident at [facility] unit for past 2 years Recently patient was noted to be very aggressive, agitated, hitting the staff at dementia unit throwing things, Psychiatric consulted, appreciate input Patient is present on scheduled dose of Zyprexa 5 mg in the morning 2.5 mg at noon and 5 mg at bedtime On Depakote 250 mg twice daily Per psych recommends ODT/p.o. Zyprexa as needed Continue to provide reassurance, support from nursing staff, Recommends patient to be frequently reoriented to place person Patient's behavioral issue likely a result of dementia, does not have an underlying psychiatric disorder Psychiatric does not feel patient needs inpatient psych admission Recommends return back to locked dementia unit when medically stable Abnormal UA History of recurrent UTI in past-usually caused patient to be agitated, aggressive outbursts UA on 09/10/2019: Not suggestive of you tract infection, has trace amount of ketones/trace leukocyte esterase/ negative bacteria Afebrile, normal white count She was started with IV Rocephin, which has been discontinued as patient was agitated, pulled out IV site Hold of antibiotic treatment for now Follow urine culture report (2) Aggressive outburst: Continue scheduled dose of Zyprexa, ordered for PRN as needed Continue supportive care Plan is to return back to dementia locked unit at [facility] when medically stable Code status: DNR/DNI Physical Exam Constitutional: no acute distress Confused, disoriented, baseline advanced dementia Eyes: + anicteric sclerae Respiratory: no respiratory distress and no cough Cardiovascular: Rate/Rhythm: regular rate and regular rhythm Gastrointestinal (Abdomen): Percussion/Palpation: abdomen soft; abdomen nontender Neurologic: moves all extremities No dysarthria, no facial palsy, no weakness or paresthesia, baseline dementia with psychosis/delirium Psychiatric: She denies confused, disoriented, oriented to person only, having episodes of agitation confrontation Results & Data Vital Signs (Past 12 Hours) Vital Signs Temp Pulse Pulse Resp BP BP Pulse Ox 09/11/19 07:18 36.4 C L 96 H 18 117/66 96 09/11/19 03:56 36.4 C L 54 L 16 109/66 95 10/17/19 03:31 36.4 C L 54 L 16 109/66 95 09/11/19 02:53 56 L 18 133/74 100 (1) Dementia Dementia behavioral disturbance: with behavioral disturbance Dementia type: unspecified type Qualified Code(s): F03.91 - Unspecified dementia with behavioral disturbance
[2019-09-12 03:24] LABS: Hepatitis A Antibody IgM NON-REACTIVE (NON-REACTIVE); Hepatitis B Core Antibody IgM NON-REACTIVE (NON-REACTIVE)
[2019-09-12] MEDS: SERTRALINE HCL 50 MG TABLET PO SCH (07:43)
[2019-09-12] MEDS: DOCUSATE SODIUM 100 MG CAP PO SCH (07:43)
[2019-09-12] MEDS: DIVALPROEX SODIUM SPRINKLE 125 MG CAP PO SCH ×3 (07:43→23:34)
[2019-09-12] MEDS: ASPIRIN 81 MG ECTAB PO SCH (07:43)
[2019-09-12] MEDS: OLANZapine 5 MG TABLET PO SCH ×2 (07:44→23:35)
[2019-09-12] MEDS: QUETIAPINE FUMARATE 25 MG TABLET PO PRN (07:44)
[2019-09-12 08:09] LABS: Basophils # (auto) 0.05 K/uL (0-0.2); Basophils % (auto) 0.7 %; Eosinophils # (auto) 0.33 K/uL (0-0.5); Eosinophils % (auto) 4.6 %; Hematocrit (blood only) 38.5 % (37-47); Hemoglobin 12.5 g/dL (12.0-16.0); Immature Granulocytes # (auto) 0.01 K/uL (0.00-0.02); Immature Granulocytes % (auto) 0.1 %; Lymphocytes # (auto) 1.38 K/uL (1.2-3.4); Lymphocytes % (auto) 19.2 %; Mean Corpuscular Hemoglobin 28.2 pg (25-34); Mean Corpuscular Hgb Conc 32.5 g/dL (32-36); Mean Corpuscular Volume 86.9 fL (80-100); Mean Platelet Volume 11.9 fL (7.4-10.4); Monocytes # (auto) 0.68 K/uL (0.11-0.59); Monocytes % (auto) 9.5 %; Neutrophils # (auto) 4.73 K/uL (1.4-6.5); Neutrophils % (auto) 65.9 %; Platelet Count 251 K/uL (130-400); RDW Coefficient of Variation 15.6 % (11.5-14.5); RDW Standard Deviation 49.2 fL (36.4-46.3); Red Blood Count 4.43 M/uL (4.2-5.4); White Blood Count 7.18 K/uL (4.8-10.8)
[2019-09-12 08:27] LABS: BUN Creatinine Ratio 24.5 (10-20); Blood Urea Nitrogen 15 mg/dl (7-18); Calcium 8.9 mg/dl (8.5-10.1); Carbon Dioxide 26 mmol/L (21-32); Chloride 108 mmol/L (98-107); Est GFR (African American) 92.8; Est GFR (Non-African American) 80.1; Glucose 89 mg/dl (70-99); Magnesium 2.1 mg/dl (1.8-2.4); Sodium 139 mmol/L (136-145)
[2019-09-12] MEDS: HEPARIN SOD 5,000 UNIT/0.5 ML VIAL SQ SCH ×2 (10:41→23:34)
[2019-09-12] MEDS: OLANZAPINE 2.5 MG TAB PO SCH (12:00)
--- NOTE | 2019-09-12 17:41 | Hospitalist Progress Note ---
Date of Service September 12, 2019 Assessment & Plan (1) Dementia: Baseline advanced dementia behavioral disturbance, psychosis History of long-term dementia, at present resident at [facility] unit for past 2 years Recently patient was noted to be very aggressive, agitated, hitting the staff at dementia unit throwing things, Psychiatric consulted, appreciate input Patient is present on scheduled dose of Zyprexa 5 mg in the morning 2.5 mg at noon and 5 mg at bedtime On Depakote 250 mg twice daily Per psych recommends ODT/p.o. Zyprexa as needed Continue to provide reassurance, support from nursing staff, Recommends patient to be frequently reoriented to place person Patient's behavioral issue likely a result of dementia, does not have an underlying psychiatric disorder Psychiatric does not feel patient needs inpatient psych admission Recommends return back to locked dementia unit when medically stable Abnormal UA Evidence of UTI: Urine culture negative History of recurrent UTI in past-usually caused patient to be agitated, aggressive outbursts UA on 09/10/2019: Not suggestive of you tract infection, has trace amount of ketones/trace leukocyte esterase/ negative bacteria Afebrile, normal white count She was started with IV Rocephin, which has been discontinued as patient was agitated, pulled out IV site Dictation of antibiotic treatment given negative culture (2) Aggressive outburst: Continue scheduled dose of Zyprexa, ordered for PRN as needed Continue supportive care Plan is to return back to dementia locked unit at [facility] when medically stable Code status: DNR/DNI Subjective Remains confused, wandering on the hallway with assistance of Aid not oriented to place or person gets agitated easily stable vitals no fever or chill Physical Exam Constitutional: no acute distress Eyes: + anicteric sclerae Respiratory: no respiratory distress and no cough Cardiovascular: Rate/Rhythm: regular rate and regular rhythm Gastrointestinal (Abdomen): Percussion/Palpation: abdomen soft; abdomen nontender Neurologic: moves all extremities Results & Data Vital Signs (Past 12 Hours) Vital Signs Pulse Resp BP 09/12/19 08:01 64 20 123/74 (1) Dementia Dementia behavioral disturbance: with behavioral disturbance Dementia type: unspecified type Qualified Code(s): F03.91 - Unspecified dementia with behavioral disturbance
[2019-09-12] MEDS: TRAZODONE HCL 50 MG TAB PO SCH ×2 (23:22→23:34)
[2019-09-13] MEDS: ASPIRIN 81 MG ECTAB PO SCH (09:10)
[2019-09-13] MEDS: SERTRALINE HCL 50 MG TABLET PO SCH (09:11)
[2019-09-13] MEDS: DIVALPROEX SODIUM SPRINKLE 125 MG CAP PO SCH ×2 (09:11→22:32)
[2019-09-13] MEDS: DOCUSATE SODIUM 100 MG CAP PO SCH (09:12)
[2019-09-13] MEDS: QUETIAPINE FUMARATE 25 MG TABLET PO PRN (09:13)
[2019-09-13] MEDS: HEPARIN SOD 5,000 UNIT/0.5 ML VIAL SQ SCH ×2 (09:42→22:34)
[2019-09-13] MEDS: OLANZapine 5 MG TABLET PO SCH ×3 (10:03→22:32)
[2019-09-13] MEDS: OLANZAPINE 2.5 MG TAB PO SCH (11:53)
[2019-09-13] MEDS ORDERED: HALOPERIDOL LACTATE 5 MG/ML 1 ML VIAL IM STA (14:48)
[2019-09-13] MEDS ORDERED: HALOPERIDOL LACTATE 5 MG/ML 1 ML VIAL ONE (14:50)
--- NOTE | 2019-09-13 15:55 | Hospitalist Progress Note ---
Date of Service September 13, 2019 Assessment & Plan (1) Dementia: Baseline advanced dementia behavioral disturbance, psychosis History of long-term dementia, at present resident at [facility] dementia unit for past 2 years Recently patient was noted to be very aggressive, agitated, hitting the staff at dementia unit throwing things, Psychiatric consulted, appreciate input Patient is present on scheduled dose of Zyprexa 5 mg in the morning 2.5 mg at noon and 5 mg at bedtime On Depakote 250 mg twice daily Per psych recommends ODT/p.o. Zyprexa as needed Continue to provide reassurance, support from nursing staff, Recommends patient to be frequently reoriented to place person Patient's behavioral issue likely a result of dementia, does not have an underlying psychiatric disorder Psychiatric does not feel patient needs inpatient psych admission Recommends return back to locked dementia unit when medically stable Abnormal UA Evidence of UTI: Urine culture negative History of recurrent UTI in past-usually caused patient to be agitated, aggressive outbursts UA on 09/10/2019: Not suggestive of you tract infection, has trace amount of ketones/trace leukocyte esterase/ negative bacteria Afebrile, normal white count She was started with IV Rocephin, which has been discontinued as patient was agitated, pulled out IV site Dictation of antibiotic treatment given negative culture (2) Aggressive outburst: Continue scheduled dose of Zyprexa, ordered for PRN as needed Continue supportive care Plan is to return back to dementia locked unit at [facility] when medically stable Code status: DNR/DNI Subjective Remains confused, wandering on the hallway with assistance of Aid not oriented to place or person gets agitated easily Required IM Haldol as patient was getting agitated, Evaluated later this afternoon, much calm and cooperative Continue to monitor Plan to return back to dementia unit in [facility] on 09/15/2019 Physical Exam Constitutional: no acute distress Eyes: + anicteric sclerae Respiratory: no respiratory distress and no cough Cardiovascular: Rate/Rhythm: regular rate and regular rhythm Gastrointestinal (Abdomen): Percussion/Palpation: abdomen soft; abdomen nontender Neurologic: moves all extremities Results & Data Vital Signs (Past 12 Hours) Vital Signs Temp Pulse Resp BP Pulse Ox 09/13/19 07:15 36.4 C L 85 18 123/79 96 (1) Dementia Dementia behavioral disturbance: with behavioral disturbance Dementia type: unspecified type Qualified Code(s): F03.91 - Unspecified dementia with behavioral disturbance
[2019-09-13] MEDS ORDERED: HALOPERIDOL LACTATE 5 MG/ML 1 ML VIAL IM PRN (18:08)
[2019-09-13] MEDS: TRAZODONE HCL 50 MG TAB PO SCH (22:32)
[2019-09-14] MEDS: HEPARIN SOD 5,000 UNIT/0.5 ML VIAL SQ SCH ×2 (08:19→22:55)
[2019-09-14] MEDS: DIVALPROEX SODIUM SPRINKLE 125 MG CAP PO SCH ×2 (08:26→22:52)
[2019-09-14] MEDS: ASPIRIN 81 MG ECTAB PO SCH (08:26)
[2019-09-14] MEDS: DOCUSATE SODIUM 100 MG CAP PO SCH (08:26)
[2019-09-14] MEDS: SERTRALINE HCL 50 MG TABLET PO SCH (08:26)
[2019-09-14] MEDS: OLANZapine 5 MG TABLET PO SCH ×2 (08:27→22:51)
[2019-09-14] MEDS: OLANZAPINE 2.5 MG TAB PO SCH (11:44)
--- NOTE | 2019-09-14 16:19 | Hospitalist Progress Note ---
Date of Service September 14, 2019 Assessment & Plan (1) Dementia: Baseline advanced dementia behavioral disturbance, psychosis History of long-term dementia, at present resident at [facility] dementia unit for past 2 years Recently patient was noted to be very aggressive, agitated, hitting the staff at dementia unit throwing things, Psychiatric consulted, appreciate input Patient is present on scheduled dose of Zyprexa 5 mg in the morning 2.5 mg at noon and 5 mg at bedtime On Depakote 250 mg twice daily Per psych recommends ODT/p.o. Zyprexa as needed Continue to provide reassurance, support from nursing staff, Recommends patient to be frequently reoriented to place person Patient's behavioral issue likely a result of dementia, does not have an underlying psychiatric disorder Psychiatric does not feel patient needs inpatient psych admission Recommends return back to locked dementia unit when medically stable Abnormal UA Evidence of UTI: Urine culture negative History of recurrent UTI in past-usually caused patient to be agitated, aggressive outbursts UA on 09/10/2019: Not suggestive of you tract infection, has trace amount of ketones/trace leukocyte esterase/ negative bacteria Afebrile, normal white count She was started with IV Rocephin, which has been discontinued as patient was agitated, pulled out IV site Dictation of antibiotic treatment given negative culture (2) Aggressive outburst: Continue scheduled dose of Zyprexa, ordered for PRN as needed Continue supportive care Plan is to return back to dementia locked unit at [facility] when medically stable Code status: DNR/DNI Subjective Patient having episodes of agitation/combativeness Required IM Haldol Advanced dementia, very confused Plan to return back to dementia unit in [facility] on 09/15/2019 Physical Exam Constitutional: no acute distress Eyes: + anicteric sclerae Respiratory: no respiratory distress and no cough Cardiovascular: Rate/Rhythm: regular rate and regular rhythm Gastrointestinal (Abdomen): Percussion/Palpation: abdomen soft; abdomen nonten ilda Neurologic: moves all extremities Results & Data Vital Signs (Past 12 Hours) Vital Signs Temp Pulse Resp BP Pulse Ox 09/14/19 08:00 36.8 C 84 16 130/78 98 (1) Dementia Dementia behavioral disturbance: with behavioral disturbance Dementia type: unspecified type Qualified Code(s): F03.91 - Unspecified dementia with behavioral disturbance
[2019-09-14] MEDS: TRAZODONE HCL 50 MG TAB PO SCH (22:52)
[2019-09-15] MEDS: DIVALPROEX SODIUM SPRINKLE 125 MG CAP PO SCH ×2 (07:57→21:01)
[2019-09-15] MEDS: OLANZapine 5 MG TABLET PO SCH ×2 (07:58→21:01)
[2019-09-15] MEDS: HEPARIN SOD 5,000 UNIT/0.5 ML VIAL SQ SCH ×2 (07:58→21:01)
[2019-09-15] MEDS: ASPIRIN 81 MG ECTAB PO SCH (07:58)
[2019-09-15] MEDS: SERTRALINE HCL 50 MG TABLET PO SCH (07:58)
[2019-09-15] MEDS: DOCUSATE SODIUM 100 MG CAP PO SCH (07:58)
[2019-09-15] MEDS ORDERED: haloperidoL 5 MG TAB PO PRN (10:54)
--- NOTE | 2019-09-15 11:52 | Hospitalist Progress Note ---
Date of Service September 15, 2019 Assessment & Plan (1) Dementia: Baseline advanced dementia behavioral disturbance, psychosis History of long-term dementia, at present resident at [facility] unit for past 2 years Recently patient was noted to be very aggressive, agitated, hitting the staff at dementia unit throwing things, Psychiatric consulted, appreciate input Patient is present on scheduled dose of Zyprexa 5 mg in the morning 2.5 mg at noon and 5 mg at bedtime On Depakote 250 mg twice daily Per psych recommends ODT/p.o. Zyprexa as needed Continue to provide reassurance, support from nursing staff, Recommends patient to be frequently reoriented to place person Patient's behavioral issue likely a result of dementia, does not have an underlying psychiatric disorder Psychiatric does not feel patient needs inpatient psych admission Recommends return back to locked dementia unit when medically stable Abnormal UA no Evidence of UTI: Urine culture negative History of recurrent UTI in past-usually caused patient to be agitated, aggressive outbursts UA on 09/10/2019: Not suggestive of you tract infection, has trace amount of ketones/trace leukocyte esterase/ negative bacteria Afebrile, normal white count She was started with IV Rocephin, which has been discontinued as patient was agitated, pulled out IV site Dictation of antibiotic treatment given negative culture (2) Aggressive outburst: Continue scheduled dose of Zyprexa, ordered PRN pO Haldol Continue supportive care Plan is to return back to dementia locked unit at [facility] when medically stable Code status: DNR/DNI Subjective more calm and co operative today IM Haldol D/santy started on PRN PO haldol Physical Exam Constitutional: no acute distress Eyes: + anicteric sclerae Respiratory: no respiratory distress and no cough Cardiovascular: Rate/Rhythm: regular rate and regular rhythm Gastrointestinal (Abdomen): Percussion/Palpation: abdomen soft; abdomen nontender Neurologic: moves all extremities (1) Dementia Dementia behavioral disturbance: with behavioral disturbance Dementia type: unspecified type Qualified Code(s): F03.91 - Unspecified dementia with behavioral disturbance
[2019-09-15] MEDS: OLANZAPINE 2.5 MG TAB PO SCH (12:33)
[2019-09-15] MEDS: TRAZODONE HCL 50 MG TAB PO SCH (21:01)
[2019-09-16] MEDS: DIVALPROEX SODIUM SPRINKLE 125 MG CAP PO SCH ×2 (07:49→22:10)
[2019-09-16] MEDS: ASPIRIN 81 MG ECTAB PO SCH (07:49)
[2019-09-16] MEDS: OLANZapine 5 MG TABLET PO SCH ×2 (07:49→22:09)
[2019-09-16] MEDS: HEPARIN SOD 5,000 UNIT/0.5 ML VIAL SQ SCH ×2 (07:50→22:12)
[2019-09-16] MEDS: SERTRALINE HCL 50 MG TABLET PO SCH (07:50)
[2019-09-16] MEDS: POLYETHYLENE (MIRALAX) 17 GM PACK PO PRN (10:41)
[2019-09-16] MEDS: DOCUSATE SODIUM SYRUP 100 MG/10 ML UDC PO SCH ×3 (12:21→22:05)
[2019-09-16] MEDS: OLANZAPINE 2.5 MG TAB PO SCH (12:21)
[2019-09-16] MEDS ORDERED: Nursing to Pharmacy Communication ONE (15:59)
[2019-09-16] MEDS ORDERED: ACETAMINOPHEN SOL 650 MG/20.3 ML UDC PO PRN (16:02)
--- NOTE | 2019-09-16 18:09 | Hospitalist Progress Note ---
Date of Service September 16, 2019 Assessment & Plan (1) Dementia: Baseline advanced dementia behavioral disturbance, psychosis History of long-term dementia, at present resident at [place] [facility] unit for past 2 years Recently patient was noted to be very aggressive, agitated, hitting the staff at dementia unit throwing things, Psychiatric consulted, appreciate input Patient is present on scheduled dose of Zyprexa 5 mg in the morning 2.5 mg at noon and 5 mg at bedtime-Patient has been spitting out meds On Depakote 250 mg twice daily Per psych recommends ODT/p.o. Zyprexa as needed Continue to provide reassurance, support from nursing staff, Recommends patient to be frequently reoriented to place person Patient's behavioral issue likely a result of dementia, does not have an underlying psychiatric disorder Psychiatric does not feel patient needs inpatient psych admission Recommends return back to locked dementia unit when medically stable Abnormal UA no Evidence of UTI: Urine culture negative History of recurrent UTI in past-usually caused patient to be agitated, aggressive outbursts UA on 09/10/2019: Not suggestive of you tract infection, has trace amount of ketones/trace leukocyte esterase/ negative bacteria Afebrile, normal white count She was started with IV Rocephin, which has been discontinued as patient was agitated, pulled out IV site Dictation of antibiotic treatment given negative culture (2) Aggressive outburst: Continue scheduled dose of Zyprexa, ordered PRN pO Haldol Continue supportive care Plan is to return back to dementia locked unit at [facility] when medically stable Code status: DNR/DNI Subjective Remains confused, Less agitated today Has been spitting out tablets, Mental status remains unchanged,Advanced dementia Physical Exam Constitutional: no acute distress Eyes: + anicteric sclerae Respiratory: no respiratory distress and no cough Cardiovascular: Rate/Rhythm: regular rate and regular rhythm Gastrointestinal (Abdomen): Percussion/Palpation: abdomen soft; abdomen nontender Neurologic: moves all extremities Results & Data Vital Signs (Past 12 Hours) Vital Signs Temp Pulse Resp BP Pulse Ox 09/16/19 15:38 36.3 C L 86 18 130/72 95 (1) Dementia Dementia behavioral disturbance: with behavioral disturbance Dementia type: unspecified type Qualified Code(s): F03.91 - Unspecified dementia with behavioral disturbance
[2019-09-16] MEDS: DOCUSATE SODIUM 100 MG CAP PO SCH (19:45)
[2019-09-16] MEDS: TRAZODONE HCL 50 MG TAB PO SCH (22:10)
[2019-09-16 23:19] VITALS: PULSE 60
[2019-09-17 07:39] VITALS: TEMP 97.5; O2SAT 99
[2019-09-17] MEDS: SERTRALINE HCL 50 MG TABLET PO SCH (07:51)
[2019-09-17] MEDS: DIVALPROEX SODIUM SPRINKLE 125 MG CAP PO SCH (07:52)
[2019-09-17] MEDS: DOCUSATE SODIUM SYRUP 100 MG/10 ML UDC PO SCH (07:52)
[2019-09-17] MEDS: OLANZapine 5 MG TABLET PO SCH (07:52)
[2019-09-17] MEDS: HEPARIN SOD 5,000 UNIT/0.5 ML VIAL SQ SCH (07:53)
[2019-09-17] MEDS: ASPIRIN 81 MG ECTAB PO SCH (07:53)
[2019-09-17] MEDS: POLYETHYLENE (MIRALAX) 17 GM PACK PO PRN (08:17)
[2019-09-17] MEDS: OLANZAPINE 2.5 MG TAB PO SCH (12:10)
--- NOTE | 2019-09-17 12:11 | Hospitalist Progress Note ---
Date of Service September 17, 2019 Assessment & Plan (1) Dementia: per Dr. Dupree (previous attending notes): Baseline advanced dementia behavioral disturbance, psychosis History of long-term dementia, at present resident at [facility] dementia unit for past 2 years Recently patient was noted to be very aggressive, agitated, hitting the staff at dementia unit throwing things, Psychiatric consulted, recommending: "- Continue olanzapine 5mg/2.5mg/5mg scheduled dosing; consider if 5mg TID dosing would be more appropriate during UTI treatment based on behavior displayed in hospital - Olanzapine 2.5mg PO q6h prn would be beneficial in order to manage agitated behavior without requiring immediate use of injection; Consider Zyprexa Zydis for ODT formulation - Will be able to make recommendations for adjustments of scheduled dosing based on utilization of prn medication - please provide medication when behavior warrants - Behavioral interventions to increase comfort and reduce anxiety as outlined: In order to effectively manage behavior related to dementia, it is recommended that behavioral techniques are utilized to improve patient's comfort level and reduce stress during this hospitalization. It would be recommended that patient be frequently re-oriented to person, place, time, event, and intervention to be performed. Permitted may be to have familiar visitors throughout the day, have familiar items in their room. It is also recommended that corrective lenses and assistive hearing devices be utilized as appropriate. Patient should be kept awake and active during the day, with lights on in room and with does open. In order to prevent disruption of sle ep/wake cycle, it is recommended the patient be encouraged to rest only in the evenings in a dark room with the blinds closed. - Agitation is most likely a result of dementia and not a primary psychiatric diagnosis; inpatient psychiatric admission would therefore not be indicated - Goal of treatment should be for return to a locked dementia unit when medically cleared" Patient's behavioral issue likely a result of dementia, does not have an underlying psychiatric disorder Psychiatric does not feel patient needs inpatient psych admission Recommends return back to locked dementia unit patient now at baseline per [employer] return to [facility] please follow Psychiatry recommendations noted above Abnormal UA UTI ruled out Urine culture: negative (2) Aggressive outburst: management as noted above Code status: DNR/DNI Follow up with Primary Care Physician at [facility] Subjective ff up for behavioral disturbance seen resting in bed, sitting up calm, cooperative [employer] at bedside, states patient is back to baseline calm most of the day so far took her medications today patient denies pain, or any other symptoms agreeable for discharge today Review of Systems Review of Systems: All systems reviewed & are unremarkable except as noted in HPI & below Physical Exam Physical Exam: General- oriented x 30, not in distress, speaks in sentences with no effort or accessory muscle use Eyes- anicteric Neck- no JVD Lungs- clear breath sounds bilaterally, no rales/wheezes Heart- normal rate, regular rhythm; no murmurs Abdomen- normal bowel sounds, nondistended, soft, nontender Extremities- no pretibial edema, no calf tenderness Neuro- alert, oriented x 3; no gross focal neurologic deficits Skin- warm & dry Psych- calm, cooperative Results & Data Vital Signs (Past 12 Hours) Vital Signs Temp Pulse Resp Pulse Ox 09/17/19 07:35 36.4 C L 60 20 99 (1) Dementia Dementia behavioral disturbance: with behavioral disturbance Dementia type: unspecified type Qualified Code(s): F03.91 - Unspecified dementia with behavioral disturbance
[2019-09-17 12:20] VITALS: BP 130/72
--- NOTE | 2019-09-17 12:34 | Discharge Summary ---
Date of Service September 17, 2019 Admission HPI Per Admitting Provider 89-year-old female admitted medically on 09/11/19 due to confusion and agitation. Patient has a long history of dementia, and has been residing at [facility] dementia unit for the past 2 years. She presents on this admission with a UTI and was admitted medically for treatment. Psychiatric consultation was requested due to reports of agitation and hitting other clients while at the dementia unit. PMH includes HLD, HTN, osteoporosis, and dementia. Pt has been presented to the ED multiple times in the last month for confusion and agitation. She has been found to have UTIs and has been treated for these. It is reported that she was admitted to [facility] in 07/2019 for psychiatric treatment and received medication adjustments at that time. Pt is admitted again with evidence of UTI and reports of agitated behavior at [facility], where it is reported she has been hitting other residents. It is reported that the patient is currently prescribed Zyprexa three times daily at 5mg/2.5mg/5mg dosing. She is also prescribed Depakote 250mg BID. Pt was observed to be walking the halls with her PORTFOLIO LEAD at time of this provider's arrival. Pt was offered to return to room to discuss more, but resisted stepping through the threshold of the doorway. This provider, accompanied by the PORTFOLIO LEAD walked with the patient for several laps. This provider attempted to ask the patient questions, which she was largely unable to answer appropriately. Pt does state she is "good", but otherwise verbalized tangential statements about going upstairs and buying this provider a "large metal structure." Pt king caballero did not even respond to this provider's questions with unrelated verbal responses and was often focused on walking her laps. She did demonstrate some mood lability, at times pulling on provider's hands to head in a certain direction and becoming mildly upset when she was encouraged to keep walking circles. At one point, patient did wave her pointed finger in front of the PORTFOLIO LEAD's face, but did not threaten to hit or touch her directly. She did fidget with the blankets on her bed briefly and then returned to walking laps. Pt states "yes" when asked if she would appreciate some additional activities such as coloring pages or blankets/towels to fold. She was unable to provide any other meaningful information at this time. Admission Exam Per Admitting Provider GENERAL: The patient is currently sedated, old and frail. VITAL SIGNS: Temperature 37, pulse 79, respiratory rate 14, blood pressure 130/78, oxygen 96% room air. HEENT: Eyes no pallor. Head is atraumatic. NECK: No JVD, no neck masses. CARDIOVASCULAR: S1, S2 heard, regular rate and rhythm, no murmur, no gallop. RESPIRATORY SYSTEM: Normal AP diameter. No accessory muscle use. No wheezing, no crackles. ABDOMEN: Soft, bowel sounds present. No distention. CENTRAL NERVOUS SYSTEM: Currently sleepy. Moves extremities. EXTREMITIES: No edema, no erythema. Principal Diagnosis DEMENTIA, BEHAVIORAL DISTURBANCE Discharge Exam General- oriented x 30, not in distress, speaks in sentences with no effort or accessory muscle use Eyes- anicteric Neck- no JVD Lungs- clear breath sounds bilaterally, no rales/wheezes Heart- normal rate, regular rhythm; no murmurs Abdomen- normal bowel sounds, nondistended, soft, nontender Extremities- no pretibial edema, no calf tenderness Neuro- alert, oriented x 3; no gross focal neurologic deficits Skin- warm & dry Psych- calm, cooperative Discharge Data Allergies Allergy/AdvReac Type Severity Reaction Status Date / Time erythromycin base Allergy Severe unknown Verified 09/08/19 18:13 pravastatin Allergy Severe unknown Verified 09/08/19 18:13 Penicillins Allergy Intermediate HIVES Verified 09/08/19 18:13 Consultations 09/11/19 01:36 ED Decision to Admit Stat 09/11/19 03:11 Consult Case Management - Discharge Planning Routine 09/11/19 08:00 Consult Psychiatry Routine Ordered Studies 09/10/19 17:14 CT head/brain wo con Stat CT head/brain wo con CT DOSE: 537.48 mGy.cm HISTORY: Mental status change Pt c/o AMS TECHNIQUE: Multiaxial CT images of the head were performed without the use of intravenous contrast. A dose lowering technique was utilized adhering to the principles of ALARA. Comparison: 08/07/2019 Findings: The paranasal sinuses and mastoid air cells are clear. The calvarium and skull base are intact. The ventricles and sulci are within normal limits. There is no mass, hematoma, midline shift, or acute infarct. Age-related changes present Impression: No acute intracranial abnormality. Hospital Course (1) Dementia: per Dr. Dupree (previous attending notes): Baseline advanced dementia behavioral disturbance, psychosis History of long-term dementia, at present resident at [facility] dementia unit for past 2 years Recently patient was noted to be very aggressive, agitated, hitting the staff at dementia unit throwing things, Psychiatric consulted, recommending: - Continue olanzapine 5mg/2.5mg/5mg scheduled dosing; consider if 5mg TID dosing would be more appropriate during UTI treatment based on behavior displayed in hospital - Olanzapine 2.5mg PO q6h prn would be beneficial in order to manage agitated behavior without requiring immediate use of injection; Consider Zyprexa Zydis for ODT formulation - Will be able to make recommendations for adjustments of scheduled dosing based on utilization of prn medication - please provide medication when behavior warrants - Behavioral interventions to increase comfort and reduce anxiety as outlined: In order to effectively manage behavior related to dementia, it is recommended that behavioral techniques are utilized to improve patient's comfort level and reduce stress during this hospitalization. It would be recommended that patient be frequently re-oriented to person, place, time, event, and intervention to be performed. Permitted may be to have familiar visitors throughout the day, have familiar items in their room. It is also recommended that corrective lenses and assistive hearing devices be utilized as appropriate. Patient should be kept awake and active during the day, with lights on in room and with does open. In order to prevent disruption of sleep/wake cycle, it is recommended the patient be encouraged to rest only in the evenings in a dark room with the blinds closed. - Agitation is most likely a result of dementia and not a primary psychiatric diagnosis; inpatient psychiatric admission would therefore not be indicated - Goal of treatment should be for return to a locked dementia unit when medically cleared" Patient's behavioral issue likely a result of dementia, does not have an underlying psychiatric disorder Psychiatric does not feel patient needs inpatient psych admission Recommends return back to locked dementia unit patient now at baseline per PAULA return to [facility] please follow Psychiatry recommendations noted above Abnormal UA UTI ruled out Urine culture: negative antibiotics discontinued, afebrile, no WBC (2) Aggressive outburst: management as noted above Follow up with Primary Care Physician at [facility] Total Time Total Time Spent Total Time Spent (In Minutes): 35 minutes Discharge Plan Discharge Items Patient Disposition: Personal [facility] Reason For Visit: CONFUSION/AGITATION Discharge Diagnosis: Advanced dementia with Behavioral disturbance Activity: Resume your previous activity Non-emergency contact: Primary Care Provider Call non-emergency contact if: you have any medication questions Follow-up/Referrals: Edwar Lane Bradley [Primary Care Provider] - Diet: Regular Addtl Attending Provider Instructions: PSYCHIATRY SERVICE RECOMMENDATIONS: - Continue olanzapine 5mg/2.5mg/5mg scheduled dosing; consider if 5mg TID dosing would be more appropriate during UTI treatment based on behavior displayed in hospital - Olanzapine 2.5mg PO q6h prn would be beneficial in order to manage agitated behavior without requiring immediate use of injection; Consider Zyprexa Zydis for ODT formulation - Will be able to make recommendations for adjustments of scheduled dosing based on utilization of prn medication - please provide medication when behavior warrants - Behavioral interventions to increase comfort and reduce anxiety as outlined: In order to effectively manage behavior related to dementia, it is recommend ed that behavioral techniques are utilized to improve patient's comfort level and reduce stress during this hospitalization. It would be recommended that patient be frequently re-oriented to person, place, time, event, and intervention to be performed. Permitted may be to have familiar visitors throughout the day, have familiar items in their room. It is also recommended that corrective lenses and assistive hearing devices be utilized as appropriate. Patient should be kept awake and active during the day, with lights on in room and with does open. In order to prevent disruption of sleep/ wake cycle, it is recommended the patient be encouraged to rest only in the evenings in a dark room with the blinds closed. - Agitation is most likely a result of dementia and not a primary psychiatric diagnosis; inpatient psychiatric admission would therefore not be indicated - Goal of treatment should be for return to a locked dementia unit when medically cleared" Pending Studies at Discharge: No Stand-Alone Forms: [employer], Smoking Cessation Skilled Items Patient informed of condition?: No DNR: Yes Discharge Level of Care: Other Communicable Disease: No Discharge Prognosis: Other Lines: None Urinary Catheter: No Medications and DC Order Prescriptions: Continued Artificial Tears (PF) Dropperette 1 drp OPHTHALMIC (EYE) BID PRN (Reason: dryness) RF: 0 lidocaine 5 % Cream 1 applic TOPICAL Q24H PRN (Reason: Pain) RF: 0 acetaminophen [Tylenol] 325 mg Tablet 650 mg PO Q4H PRN (Reason: pain/fever) RF: 0 hydrocortisone acetate [Anusol-HC] 25 mg Suppository 25 mg IL DAILY PRN (Reason: Hemorrhoids) RF: 0 ibuprofen 400 mg Tablet 400 mg PO Q6H PRN (Reason: Pain) RF: 0 Depakote Sprinkles tablet 250 mg PO BID RF: 0 olanzapine 2.5 mg Tablet See Rx Instructions .ROUTE .COMPLEX RF: 0 trazodone 50 mg Tablet 25 mg PO HS RF: 0 olanzapine [Zyprexa] 5 mg Tablet 5 mg PO BID RF: 0 sertraline 25 mg Tablet 25 mg PO DAILY RF: 0 Changed docusate sodium [Colace] 100 mg Capsule 100 mg PO BID PRN (Reason: Constipation) Qty: 0 RF: 0 Discontinued aspirin 81 mg Tablet,Delayed Release (Dr/Ec) 81 mg PO DAILY RF: 0 Discharge Orders: Discharge Order (Routine); Ordered 09/17/19 Ordered By: Chidi Silvestre Admission Data Admit Date/Time: 09/11/19 02:24 Attending Provider: Chidi Silvestre Admit Provider: Bhavin Johnson Primary Care Provider: Edwar Lane Bradley Other Providers: Bhavin Johnson ; Keily Fong Ayesha H. Other Interventions: Discharge Summary Assessment (RN) Last Done: 09/17/19 12:15
== END 2019-09-17 13:54 | disposition home or self-care (01) | DRG 884 ==
LOC: ED 17:05 → SUATTDRO 09-11 02:24 → 4W 09-11 02:24